=== PATIENT | female | born 1930 | race African-American/Black ===

== ENCOUNTER 2017-02-12 10:40 | Inpatient (IN) | payer MEDICARE, OTHER ==
[~2017-02-12] VITALS: Ht 162.6 cm; Wt 90.7 kg
[~2017-02-12 10:40] MED LIST: AMITIZA24 MCG ORAL; ASPIRIN81 M1 ORAL; CARVEDILOL25 MG ORAL; COLACE1 EAC1 RC; CRESTOR10 M1 PO; DEXILANT60 MG ORAL; FUROSEMIDE40 MG ORAL; HYDROCHLOROTHIA25 MG ORAL; IBUPROFEN200 M1 PO; MIRALAX17 G2 PO; MONTELUKAST SOD10 MG ORAL; NKM; NORCO 7.5-3251 EACH PO; NORVASC2.5 MG ORAL; PANTOPRAZOLE SO40 MG ORAL; POTASSIUM CHLO10 MEQ ORAL; PREVACID30 MG PO; SPIRONOLACTONE100 MG PO; SUCRALFATE; SUCRALFATE1 GM ORAL
[2017-02-12] MEDS ORDERED: DiphenhydrAMINE 50mg/ml Inj IVP ONE (11:30)
[2017-02-12] MEDS ORDERED: Tetanus/Diptheria/Pertussis Vaccine 0.5ml Syr IM ONE (11:30)
[2017-02-12] MEDS ORDERED: Bacitracin Oint UD TOPIC ONE (11:30)
--- NOTE | 2017-02-12 12:15 | Diagnostic Imaging Report ---
Indication: Chest pain Comparison: 09/18/13 A single view chest radiograph was obtained. Findings: No definite infiltrate or pulmonary vascular congestion identified. The heart is enlarged. The aorta is mildly enlarged consistent with atherosclerotic vascular disease. The bones are osteopenic. Impression: No acute disease
[2017-02-12] MEDS ORDERED: CRESTOR20 MG ORAL (12:20)
[2017-02-12] MEDS ORDERED: AMLODIPINE BESY10 MG ORAL (12:20)
[2017-02-12] MEDS ORDERED: CARVEDILOL25 MG ORAL (12:20)
[2017-02-12] MEDS ORDERED: JANUVIA25 MG ORAL (12:20)
[2017-02-12 12:33] LABS: TROPONIN I < 0.30 ng/mL (<=0.30)
[2017-02-12 12:36] LABS: ALANINE AMINOTRANSFERASE 13 U/L (3-33); ALBUMIN/GLOBULIN RATIO 0.6 (1.0-2.7); ANION GAP 15 (5-15); ASPARTATE AMINO TRANSFERASE 29 U/L (5-40); CALCIUM 9.2 mg/dL (8.6-10.2); CARBON DIOXIDE 26 mEQ/L (20-30); CHLORIDE 102 mEQ/L (98-107); HEMOLYSIS 176; LIPASE 33 U/L (< 60); POTASSIUM 4.7 mEQ/L (3.4-4.9); SODIUM 143 mEQ/L (135-145); TOTAL PROTEIN 7.3 g/dL (6.6-8.7)
[2017-02-12 12:42] LABS: REFLEX LACTIC ACID YES OR NO YES
[2017-02-12 12:46] LABS: CKMB < 1.5 ng/mL (< 3.8)
[2017-02-12 12:50] LABS: BASOPHILS % (AUTO) 2.3 % (0.0-2.0); EOSINOPHILS % (AUTO) 11.1 % (0.0-3.0); LYMPHOCYTES % (AUTO) 15.6 % (20.0-45.0); MEAN CORPUSCULAR HEMOGLOBIN 25.3 PG (27.0-31.0); MEAN CORPUSCULAR VOLUME 84 FL (80-99); MEAN PLATELET VOLUME 6.8 FL (6.5-10.1); NEUTROPHILS % (AUTO) 60.1 % (45.0-75.0); PLATELET COUNT 268 K/UL (150-450); RED BLOOD COUNT 4.87 M/UL (4.20-5.40); RED CELL DISTRIBUTION WIDTH 14.9 % (11.6-14.8)
[2017-02-12 13:00] VITALS: BP 96/64
--- NOTE | 2017-02-12 13:02 | Emergency Room Report ---
History of Present Illness General Chief Complaint: Skin Rash/Abscess Source: Patient Present Illness HPI Patient presents with a month of rash. It's all over her body. It's worse in the creases of her skin. His itching and also skin breakdown. She also has a foul discharge from her genital region. She states is not painful but is itching. She's not sure when her last tetanus shot was. Denies pain. She was unable to get a ride to her doctors until today. A visiting nurse comes once a week and advised her last week to go to the hospital because the rash was getting severe. She states a pharmacist told her she has psoriasis. Allergies: Coded Allergies: AZITHROMYCIN (Unverified Allergy, Severe, 05/13/13) Uncoded Allergies: unknown antibiotic (Allergy, Mild, 04/12/15) pt unsure of name of antibiotic, but states she has an allergy to "something" UNKNOWN ANTIBIOTIC (Allergy, Unknown, 05/27/12) Patient History Past Medical History: see triage record Social History Narrative at home with visiting RN once a week Reviewed Nursing Documentation: PMH: Agreed, PSxH: Agreed Nursing Documentation-PMH Hx Cardiac Problems: Yes - chf Hx Hypertension: Yes Hx COPD: Yes Hx Diabetes: No Hx Cancer: No Hx Gastrointestinal Problems: Yes Hx Seizures: Yes - X1 LONG TIME AGO Hx Cerebral Palsy: Yes Hx Dizziness: Yes Hx Headaches: Yes Review of Systems All Other Systems: negative except mentioned in HPI Physical Exam Vital Signs Date Time Temp Pulse Resp B/P Pulse Ox O2 Delivery O2 Flow Rate FiO2 02/12/17 10:58 97.5 108 24 96/64 97 Room Air Sp02 EP Interpretation: reviewed, normal General Appearance: no apparent distress, GCS 15, Chronically Ill Head: normocephalic, atraumatic Eyes: bilateral eye PERRL, bilateral eye normal inspection ENT: moist mucus membranes Neck: supple, no meningismus Respiratory: lungs clear, normal breath sounds Cardiovascular #1: regular rate, rhythm Cardiovascular #2: 2+ radial (R) Gastrointestinal: normal inspection, normal bowel sounds, non tender, no mass, non-distended, overweight Genitourinary: other - intertrigo Musculoskeletal: back normal, gait/station normal, normal range of motion Neurologic: alert, oriented x3, grossly normal - diffuse weakness Psychiatric: mood/affect normal Skin: other - diffuse rash all over body with areas of increased erythema and skin breakdown Medical Decision Making Diagnostic Impression: Primary Impression: Sepsis Qualified Codes: A41.9 - Sepsis, unspecified organism Additional Impressions: Cellulitis Qualified Codes: L03.90 - Cellulitis, unspecified Intertrigo ER Course The patient presents with itchy rash of her skin which is worsening in 2 weeks. Physical exam is remarkable for an extensive cellulitis with intertrigo - other considerations are scalded skin syndrome, allergic reaction. Patient evaluated for possible sepsis. Antibiotics are indicated and the patient is admitted to the hospital. Labs remarkable for normal WBC with eosinophilia, elevated lactic acid. EKG and CXR as below. Antibiotics begun. Consider antifungal agents. Improved with treatment. Discussed with Dr. Caban who declines admission. Presented to on-call physician who accepts patient. Admit med. Laboratory Tests Test 02/12/17 12:00 02/12/17 13:25 White Blood Count 6.0 K/UL (4.8-10.8) Red Blood Count 4.87 M/UL (4.20-5.40) Hemoglobin 12.3 G/DL (12.0-16.0) Hematocrit 41.1 % (37.0-47.0) Mean Corpuscular Volume 84 FL (80-99) Mean Corpuscular Hemoglobin 25.3 PG (27.0-31.0) L Mean Corpuscular Hemoglobin Concent 30.0 G/DL (32.0-36.0) L Red Cell Distribution Width 14.9 % (11.6-14.8) H Platelet Count 268 K/UL (150-450) Mean Platelet Volume 6.8 FL (6.5-10.1) Neutrophils (%) (Auto) 60.1 % (45.0-75.0) Lymphocytes (%) (Auto) 15.6 % (20.0-45.0) L Monocytes (%) (Auto) 11.0 % (1.0-10.0) H Eosinophils (%) (Auto) 11.1 % (0.0-3.0) H Basophils (%) (Auto) 2.3 % (0.0-2.0) H Sodium Level 143 mEQ/L (135-145) Potassium Level 4.7 mEQ/L (3.4-4.9) Chloride Level 102 mEQ/L (98-107) Carbon Dioxide Level 26 mEQ/L (20-30) Anion Gap 15 (5-15) Blood Urea Nitrogen 12 mg/dL (7-23) Creatinine 1.0 mg/dL (0.5-0.9) H Estimate Glomerular Filtration Rate mL/min (>60) Glucose Level 107 mg/dL (74-106) H Lactic Acid Level 2.90 mmol/L (0.66-2.22) H 1.90 mmol/L (0.66-2.22) Calcium Level 9.2 mg/dL (8.6-10.2) Total Bilirubin < 0.2 mg/dL (0.0-1.2) Aspartate Amino Transferase (AST) 29 U/L (5-40) Alanine Aminotransferase (ALT) 13 U/L (3-33) Alkaline Phosphatase 82 U/L (35-104) Total Creatine Kinase 66 U/L (26-140) Creatine Kinase MB < 1.5 ng/mL (< 3.8) Creatine Kinase MB Relative Index Troponin I < 0.30 ng/mL (<=0.30) Pro-B-Type Natriuretic Peptide 353 pg/mL (0-450) Total Protein 7.3 g/dL (6.6-8.7) Albumin 3.0 g/dL (3.5-5.2) L Globulin 4.3 g/dL Albumin/Globulin Ratio 0.6 (1.0-2.7) L Lipase 33 U/L (< 60) Prothrombin Time 9.7 SEC (9.30-11.50) Prothrombin Time INR 0.9 (0.9-1.1) PTT 26 SEC (23-33) EKG Diagnostic Results Rate: normal Rhythm: NSR ST Segments: no acute changes Rhythm Strip Diag. Results EP Interpretation: yes Rhythm: NSR, no PVC's, no ectopy Chest X-Ray Diagnostic Results Chest X-Ray Diagnostic Results : Chest X-Ray Ordered: Yes # of Views/Limited/Complete: 1 View Indication: Other EP Interpretation: Yes Interpretation: no consolidation, no effusion, no pneumothorax, no acute cardiopulmonary disease Impression: No acute disease Interpreting ER Provider: Electronically signed by Raymond Mendes MD Last Vital Signs Date Time Temp Pulse Resp B/P Pulse Ox O2 Delivery O2 Flow Rate FiO2 02/12/17 20:01 95 112/52 02/12/17 20:00 97.6 18 96 Room Air Status: improved Disposition: ADMITTED INPATIENT Condition: Serious Referrals: NON PHYSICIAN (PCP) Raymond Mendes M.D. Feb 12, 2017 13:02
[2017-02-12] MEDS ORDERED: Vancomycin 1.5gm/D5W 250ml 250 ML IVPB ONE (13:30)
[2017-02-12 13:44] LABS: INR 0.9 (0.9-1.1); PROTHROMBIN TIME 9.7 SEC (9.30-11.50)
[2017-02-12] MEDS ORDERED: LORazepam Inj 2mg/ml 1ml IV PRN (13:45)
[2017-02-12] MEDS ORDERED: Ketorolac 30mg Inj IV PRN (13:45)
[2017-02-12] MEDS ORDERED: Nitroglycerin Subl 0.4mg tab (Bottle Of 25) SL PRN (13:45)
[2017-02-12] MEDS ORDERED: Piperacillin/Tazobactam 2.25 GM in D5W 55 ML IV SCH (14:00)
[2017-02-12 15:30] VITALS: BP 127/64
[2017-02-12 16:42] VITALS: BP 118/69
[2017-02-12] MEDS: DiphenhydrAMINE 50mg/ml Inj IVP PRN (17:14)
[2017-02-12] MEDS: Zosyn 3.375gm q8h **Extended infusion IVPB SCH ×2 (17:39)
[2017-02-12] MEDS ORDERED: Solu-MEDROL 125mg Inj IV SCH (18:00)
--- NOTE | 2017-02-12 18:45 | Infectious Diseases Prog Note ---
Assessment/Plan Problems: (1) Intertrigo Assessment & Plan: will start fluconazol iv, recommend local wound care, and topical antifungals , avoid steroids (2) Cellulitis Assessment & Plan: started on zosyn and vancomycin , will send wound culture and blood culture (3) Sepsis Assessment & Plan: continue wide spectrum antibiotics , send blood culture (4) Chronic obstructive lung disease Assessment & Plan: with no exacerbation, avoid steroids, continue anhalers with neb therapy Subjective Allergies: Coded Allergies: AZITHROMYCIN (Unverified Allergy, Severe, 05/13/13) Uncoded Allergies: unknown antibiotic (Allergy, Mild, 04/12/15) pt unsure of name of antibiotic, but states she has an allergy to "something" UNKNOWN ANTIBIOTIC (Allergy, Unknown, 05/27/12) Objective Vital Signs Last 24 Hour Vital Signs Date Time Temp Pulse Resp B/P Pulse Ox O2 Delivery O2 Flow Rate FiO2 02/12/17 16:42 97.0 96 15 118/69 97 Room Air 02/12/17 15:30 97.8 16 127/64 98 Room Air 02/12/17 15:12 18 134/61 99 Room Air 02/12/17 13:00 97.5 24 96/64 97 Room Air 02/12/17 10:58 97.5 108 24 96/64 97 Room Air Height (Feet): 5 Height (Inches): 4.00 Weight (Pounds): 200 Laboratory Tests Test 02/12/17 12:00 02/12/17 13:25 White Blood Count 6.0 K/UL (4.8-10.8) Red Blood Count 4.87 M/UL (4.20-5.40) Hemoglobin 12.3 G/DL (12.0-16.0) Hematocrit 41.1 % (37.0-47.0) Mean Corpuscular Volume 84 FL (80-99) Mean Corpuscular Hemoglobin 25.3 PG (27.0-31.0) L Mean Corpuscular Hemoglobin Concent 30.0 G/DL (32.0-36.0) L Red Cell Distribution Width 14.9 % (11.6-14.8) H Platelet Count 268 K/UL (150-450) Mean Platelet Volume 6.8 FL (6.5-10.1) Neutrophils (%) (Auto) 60.1 % (45.0-75.0) Lymphocytes (%) (Auto) 15.6 % (20.0-45.0) L Monocytes (%) (Auto) 11.0 % (1.0-10.0) H Eosinophils (%) (Auto) 11.1 % (0.0-3.0) H Basophils (%) (Auto) 2.3 % (0.0-2.0) H Sodium Level 143 mEQ/L (135-145) Potassium Level 4.7 mEQ/L (3.4-4.9) Chloride Level 102 mEQ/L (98-107) Carbon Dioxide Level 26 mEQ/L (20-30) Anion Gap 15 (5-15) Blood Urea Nitrogen 12 mg/dL (7-23) Creatinine 1.0 mg/dL (0.5-0.9) H Estimat Glomerular Filtration Rate mL/min (>60) Glucose Level 107 mg/dL (74-106) H Lactic Acid Level 2.90 mmol/L (0.66-2.22) H 1.90 mmol/L (0.66-2.22) Calcium Level 9.2 mg/dL (8.6-10.2) Total Bilirubin < 0.2 mg/dL (0.0-1.2) Aspartate Amino Transf (AST/SGOT) 29 U/L (5-40) Alanine Aminotransferase (ALT/SGPT) 13 U/L (3-33) Alkaline Phosphatase 82 U/L (35-104) Total Creatine Kinase 66 U/L (26-140) Creatine Kinase MB < 1.5 ng/mL (< 3.8) Creatine Kinase MB Relative Index Troponin I < 0.30 ng/mL (<=0.30) Pro-B-Type Natriuretic Peptide 353 pg/mL (0-450) Total Protein 7.3 g/dL (6.6-8.7) Albumin 3.0 g/dL (3.5-5.2) L Globulin 4.3 g/dL Albumin/Globulin Ratio 0.6 (1.0-2.7) L Lipase 33 U/L (< 60) Prothrombin Time 9.7 SEC (9.30-11.50) Prothromb Time International Ratio 0.9 (0.9-1.1) Activated Partial Thromboplast Time 26 SEC (23-33) Current Medications Medications (Trade) Dose Ordered Sig/Atul Route PRN Reason Start Time Stop Time Status Last Admin Dose Admin Albuterol/ Ipratropium (DuoNeb 0.5-3(2.5)mg/3ml) 3 ml Q4H PRN HHN dyspnea 02/12/17 13:45 02/17/17 13:44 Amlodipine Besylate (Norvasc) 2.5 mg DAILY ORAL 02/13/17 09:00 03/15/17 08:59 Carvedilol (Coreg) 25 mg Q12HR ORAL 02/12/17 21:00 03/14/17 20:59 Dextrose STAT PRN IV Hypoglycemia 02/12/17 13:45 03/14/17 13:44 Diphenhydramine HCl (Benadryl) 25 mg Q6H PRN IVP Itching 02/12/17 17:00 03/14/17 16:59 02/12/17 17:14 Heparin Sodium (Porcine) (Heparin 5000 units/ml) 5,000 units EVERY 12 HOURS SUBQ 02/12/17 21:00 03/14/17 20:59 Ketorolac Tromethamine (Toradol 30mg) 30 mg Q8H PRN IV moderate pain 4-6 02/12/17 13:45 02/17/17 13:44 Lorazepam (Ativan 2mg/ml 1ml) 0.5 mg Q4H PRN IV For Anxiety 02/12/17 13:45 02/19/17 13:44 Methylprednisolone Sodium Succinate (Solu-MEDROL) 60 mg EVERY 6 HOURS IV 02/12/17 18:00 03/14/17 17:59 02/12/17 17:32 Montelukast Sodium (Singulair) 10 mg QPM ORAL 02/12/17 16:30 03/14/17 16:29 Morphine Sulfate (Morphine Sulfate) 2 mg Q4H PRN IVP severe pain 7-10 02/12/17 13:45 02/19/17 13:44 Nitroglycerin (Ntg) 0.4 mg Q5M X 3 DOSES PRN SL Prn Chest Pain 02/12/17 13:45 03/14/17 13:44 Ondansetron HCl (Zofran) 4 mg Q6H PRN IVP Nausea & Vomiting 02/12/17 13:45 03/14/17 13:44 Piperacillin Sod/ Tazobactam Sod/ Dextrose (Zosyn/D5W) 110 ml @ 27.5 mls/hr Q8HR@0000,0800,1600 IVPB 02/12/17 16:00 02/19/17 15:59 02/12/17 17:39 Promethazine HCl/ Codeine (Phenergan with Codeine) 5 ml Q6H PRN ORAL cough 02/12/17 13:45 03/14/17 13:44 Temazepam (Restoril) 15 mg HSPRN PRN ORAL Insomnia 02/12/17 13:45 02/19/17 13:44 Theophylline (Shar-Dur) 100 mg EVERY 12 HOURS ORAL 02/12/17 21:00 03/14/17 20:59 Gordon Miller M.D. Feb 12, 2017 18:45
[2017-02-12] MEDS: Montelukast 10mg tablet ORAL SCH (19:41)
[2017-02-12 20:00] VITALS: BP 112/52
[2017-02-12] MEDS: Theophylline ER 100mg ORAL SCH (20:00)
[2017-02-12] MEDS: Carvedilol 25mg Tab ORAL SCH (20:01)
[2017-02-12] MEDS: Heparin 5000 units/ml inj SUBQ SCH (20:03)
--- NOTE | 2017-02-12 23:15 | Consultation ---
DATE OF CONSULTATION: 02/12/2017 INFECTIOUS DISEASE CONSULTATION REQUESTING PHYSICIAN: Crissy Duke M.D. REASON FOR CONSULTATION: Cellulitis, intertrigo and sepsis. Recommendation for antibiotic therapy. HISTORY OF PRESENT ILLNESS: The patient is an 86-year-old female, morbidly obese, was brought into the hospital by her son for worsening skin cellulitis and infection. The patient has been itching her skin and her infection has been getting worse over the last two weeks with some breakdown. It has a foul discharge also from the genital region and area, became painful. As per the son, the patient was unable to seek medical attention, so she was brought into the emergency room at [facility] for evaluation and I was asked by the primary provider for antibiotic treatment and further management. PAST MEDICAL HISTORY: Significant for morbid obesity, coronary artery disease, CHF, hypertension, COPD, seizure, cerebral palsy and headache. PAST SURGICAL HISTORY: Negative. MEDICATIONS: The patient was started on vancomycin and Zosyn with high-dose steroid by the admitting physician. For rest of her medications, please refer to MAR. ALLERGIES: She is allergic to azithromycin. SOCIAL HISTORY: The patient lives at home with son. She is a visiting registered nurse every week. No recent drugs, tobacco or alcohol. FAMILY HISTORY: Unable to obtain. REVIEW OF SYSTEMS: A 12-point system review was all negative apart from the one I mentioned above in my History and Physical. PHYSICAL EXAMINATION: GENERAL: The patient is a morbidly obese female, lying in bed, alert, comfortable, not in distress. VITAL SIGNS: Temperature 97.5 degrees, pulse 74, blood pressure 96/64 and pulse oximetry 97% on room air. HEENT: Normocephalic and atraumatic. Pupils are reactive to light. Moist oral mucosa. No exudate. NECK: Supple. No lymphadenopathy. CARDIOVASCULAR: Regular rate and rhythm. No murmur or gallop. LUNGS: She has diminished breathing sound at the bases. Normal breathing effort. No wheezing. No rales. ABDOMEN: Soft, morbidly obese, nontender, and nondistended. Positive bowel sounds. EXTREMITIES: She has edema +1. Multiple skin cellulitis areas, mainly at the folds in the groin and close by genital area with foul smell. LABORATORY AND DIAGNOSTIC DATA: Labs showed white count of 6,000, hemoglobin of 4.3 and platelet count of 268,000. BUN of 12 and creatinine of 1. Imaging, chest x-ray showed no acute process. ASSESSMENT AND RECOMMENDATION: 1. Intertrigo The patient will be started on fluconazole IV. Recommend local wound care with topical antifungals and off-loading. Keep the skin dry and clean and ventilated. 2. Skin cellulitis. We will send wound culture. Continue vancomycin and Zosyn empiric treatments, pending culture results. 3. Sepsis. We will obtain blood culture. Continue vancomycin and Zosyn for now, empiric treatment. 4. Chronic obstructive pulmonary disease with no exacerbation. Continue inhalers. Avoid steroid if the patient had multiple infection and possible sepsis. Gordon Miller M.D. DR: NONA JOB#: [id number] CC:
[2017-02-13] VITALS: BP 127/74
[2017-02-13] MEDS: Zosyn 3.375gm q8h **Extended infusion IVPB SCH ×4 (01:27→08:22)
[2017-02-13 04:00] VITALS: BP 125/69
[2017-02-13] MEDS: Theophylline ER 100mg ORAL SCH ×2 (08:26→08:33)
[2017-02-13] MEDS: Carvedilol 25mg Tab ORAL SCH ×2 (08:33→22:09)
[2017-02-13] MEDS: Heparin 5000 units/ml inj SUBQ SCH ×2 (08:40→22:15)
[2017-02-13] MEDS: DiphenhydrAMINE 50mg/ml Inj IVP PRN ×3 (08:53→22:52)
[2017-02-13] MEDS: Morphine Sulfate 2mg/ml Inj IVP PRN ×3 (08:56→22:52)
[2017-02-13 09:00] VITALS: BP 140/78
--- NOTE | 2017-02-13 13:30 | Infectious Diseases Prog Note ---
Assessment/Plan Problems: (1) Intertrigo Assessment & Plan: on fluconazol iv, recommend local wound care, and topical antifungals , avoid steroids (2) Cellulitis Assessment & Plan: started on zosyn and vancomycin , will send wound culture and blood culture (3) Sepsis Assessment & Plan: continue wide spectrum antibiotics , send blood culture (4) Chronic obstructive lung disease Assessment & Plan: with no exacerbation, avoid steroids, continue anhalers with neb therapy Subjective ROS Limited/Unobtainable: Yes Allergies: Coded Allergies: AZITHROMYCIN (Unverified Allergy, Severe, 05/13/13) Uncoded Allergies: unknown antibiotic (Allergy, Mild, 04/12/15) pt unsure of name of antibiotic, but states she has an allergy to "something" UNKNOWN ANTIBIOTIC (Allergy, Unknown, 05/27/12) Subjective she was up in bed comfortable, not in distress, afebrile Objective Vital Signs Last 24 Hour Vital Signs Date Time Temp Pulse Resp B/P Pulse Ox O2 Delivery O2 Flow Rate FiO2 02/13/17 09:49 87 Room Air 02/13/17 09:00 96.8 86 18 140/78 96 Room Air 02/13/17 08:41 81 125/69 02/13/17 08:33 81 125/69 02/13/17 04:00 97.2 81 19 125/69 96 Room Air 02/13/17 00:00 97.0 81 19 127/74 97 Room Air 02/12/17 20:01 95 112/52 02/12/17 20:00 97.6 95 18 112/52 96 Room Air 02/12/17 16:42 97.0 96 15 118/69 97 Room Air 02/12/17 15:30 97.8 16 127/64 98 Room Air 02/12/17 15:12 18 134/61 99 Room Air Height (Feet): 5 Height (Inches): 4.00 Weight (Pounds): 200 General Appearance: WD/WN, no acute distress HEENT: normocephalic, anicteric, mucous membranes moist, PERRL Respiratory/Chest: chest wall non-tender, lungs clear, normal breath sounds, no respiratory distress, no accessory muscle use Cardiovascular: normal peripheral pulses, normal rate, regular rhythm, no gallop/murmur Abdomen: normal bowel sounds, soft, non tender, no organomegaly, non distended , no mass, no scars Genitourinary: other - intertrego Extremities: no cyanosis, no clubbing Skin: rash, lesions, other - intertrego Microbiology Date/Time Source Procedure Growth Status 02/12/17 20:30 Thigh Right Gram Stain - Final Resulted 02/12/17 20:30 Thigh Right Wound Culture Pending Resulted Current Medications Medications (Trade) Dose Ordered Sig/Atul Route PRN Reason Start Time Stop Time Status Last Admin Dose Admin Albuterol/ Ipratropium (DuoNeb 0.5-3(2.5)mg/3ml) 3 ml Q4H PRN HHN dyspnea 02/12/17 13:45 02/17/17 13:44 Amlodipine Besylate (Norvasc) 2.5 mg DAILY ORAL 02/13/17 09:00 03/15/17 08:59 02/13/17 08:41 Carvedilol (Coreg) 25 mg Q12HR ORAL 02/12/17 21:00 03/14/17 20:59 02/13/17 08:33 Dextrose STAT PRN IV Hypoglycemia 02/12/17 13:45 03/14/17 13:44 Diphenhydramine HCl 25 mg 25 mg Q6H PRN IVP Itching 02/12/17 17:00 03/14/17 16:59 02/13/17 08:53 Fluconazole/ Sodium Chloride (Diflucan 200mg/ 100ml Premix) 100 ml @ 100 mls/hr Q24H IV 02/12/17 20:00 02/19/17 19:59 02/12/17 20:02 Heparin Sodium (Porcine) (Heparin 5000 units/ml) 5,000 units EVERY 12 HOURS SUBQ 02/12/17 21:00 03/14/17 20:59 02/13/17 08:40 Ketorolac Tromethamine (Toradol 30mg) 30 mg Q8H PRN IV moderate pain 4-6 02/12/17 13:45 02/17/17 13:44 Lorazepam (Ativan 2mg/ml 1ml) 0.5 mg Q4H PRN IV For Anxiety 02/12/17 13:45 02/19/17 13:44 Montelukast Sodium (Singulair) 10 mg QPM ORAL 02/12/17 16:30 03/14/17 16:29 7/11/17 19:41 Morphine Sulfate (Morphine Sulfate) 2 mg Q4H PRN IVP severe pain 702/12/17 13:45 02/19/17 13:44 02/13/17 08:56 Nitroglycerin (Ntg) 0.4 mg Q5M X 3 DOSES PRN SL Prn Chest Pain 02/12/17 13:45 03/14/17 13:44 Ondansetron HCl (Zofran) 4 mg Q6H PRN IVP Nausea & Vomiting 02/12/17 13:45 03/14/17 13:44 Piperacillin Sod/ Tazobactam Sod/ Dextrose (Zosyn/D5W) 110 ml @ 27.5 mls/hr Q8HR@0000,0800,1600 IVPB 02/12/17 16:00 02/19/17 15:59 02/13/17 08:22 Promethazine HCl/ Codeine (Phenergan with Codeine) 5 ml Q6H PRN ORAL cough 02/12/17 13:45 03/14/17 13:44 Temazepam (Restoril) 15 mg HSPRN PRN ORAL Insomnia 02/12/17 13:45 02/19/17 13:44 Theophylline (Shar-Dur) 100 mg EVERY 12 HOURS ORAL 02/12/17 21:00 03/14/17 20:59 02/13/17 08:33 Gordon Miller M.D. Feb 13, 2017 13:30
--- NOTE | 2017-02-13 15:54 | History and Physical ---
History of Present Illness General Date patient seen: Feb 13, 2017 Reason for Hospitalization: Skin Rash/Abscess Present Illness HPI 86 year old female with hx of COPD/asthma, HTN, DM, presented to ER with CC of intractable itching and generalized rash, mostly on her back and extremities. No reported episode of fever, chills. Allergies: Coded Allergies: AZITHROMYCIN (Unverified Allergy, Severe, 05/13/13) Uncoded Allergies: unknown antibiotic (Allergy, Mild, 04/12/15) pt unsure of name of antibiotic, but states she has an allergy to "something" UNKNOWN ANTIBIOTIC (Allergy, Unknown, 05/27/12) Medication History Scheduled Amlodipine Besylate (Norvasc), 2.5 MG ORAL DAILY, (Reported) Amlodipine Besylate* (Amlodipine Besylate*), 10 MG ORAL DAILY, (Reported) Aspirin (Aspirin), 81 MG ORAL DAILY, (Reported) Carvedilol* (Carvedilol*), 25 MG ORAL DAILY, (Reported) Carvedilol* (Carvedilol*), 25 MG ORAL BID, (Reported) Dexlansoprazole (Dexilant), 60 MG ORAL DAILY, (Reported) Furosemide* (Lasix*), 40 MG ORAL DAILY, (Reported) Hydrochlorothiazide* (Hydrochlorothiazide*), 25 MG ORAL DAILY, (Reported) Hydrocodone Bit/Acetaminophen 7.5-325* ([place] 7.5-325*), 1 TAB PO Q4H, (Reported ) Ibuprofen (Ibuprofen), 0 PO DAILY, (Reported) Lubiprostone (Amitiza*), 24 MCG ORAL EVERY 12 HOURS, (Reported) Montelukast Sodium* (Montelukast Sodium*), 10 MG ORAL DAILY, (Reported) No Known Medications* (NKM - No Known Medications*), 0 ., (Reported) Pantoprazole* (Pantoprazole*), 40 MG ORAL DAILY, (Reported) Rosuvastatin Calcium (Crestor), 0 PO DAILY, (Reported) Rosuvastatin Calcium* (Crestor*), 20 MG ORAL DAILY, (Reported) Sitagliptin* (Januvia*), 100 MG ORAL DAILY, (Reported) Spironolactone* (Spironolactone*), 0 PO DAILY, (Reported) Sucralfate* (Carafate*), 1 GM ORAL THREE TIMES A DAY, (Reported) Scheduled PRN Polyethylene Glycol 3350* (Miralax*), 17 GM PO DAILY PRN, (Reported) Miscellaneous Medications Potassium Chloride* (K-Dur*), MEQ ORAL, (Reported) Patient History Healthcare decision maker Kianna Curiel Resuscitation status Full Code Advanced Directive on File No Past Medical/Surgical History Past Medical/Surgical History: (1) HTN (hypertension) (2) Diabetes mellitus (3) Chronic obstructive lung disease Review of Systems All Other Systems: negative except mentioned in HPI Physical Exam General Appearance: WD/WN, no apparent distress Lines, tubes and drains: peripheral HEENT: normocephalic, atraumatic Neck: non-tender, supple Breasts: no masses Cardiovascular/Chest: normal peripheral pulses, normal rate Abdomen: normal bowel sounds, non tender Genitourinary/Rectal: normal genital exam, normal rectal exam Extremities: normal range of motion Neurologic: pediatric dietician II-XII grossly normal Last 24 Hour Vital Signs Date Time Temp Pulse Resp B/P Pulse Ox O2 Delivery O2 Flow Rate FiO2 02/13/17 09:49 87 Room Air 02/13/17 09:00 96.8 86 18 140/78 96 Room Air 02/13/17 08:41 81 125/69 02/13/17 08:33 81 125/69 02/13/17 04:00 97.2 81 19 125/69 96 Room Air 02/13/17 00:00 97.0 81 19 127/74 97 Room Air 02/12/17 20:01 95 112/52 02/12/17 20:00 97.6 95 18 112/52 96 Room Air 02/12/17 16:42 97.0 96 15 118/69 97 Room Air Intake and Output 02/12/17 02/13/17 19:00 07:00 Intake Total 400 ml 210.0 ml Output Total 140 ml 300 ml Balance 260 ml -90.0 ml Intake Oral 400 ml IV Total 210.0 ml Output Urine Total 140 ml 300 ml Microbiology Date/Time Source Procedure Growth Status 02/12/17 20:30 Thigh Right Gram Stain - Final Resulted 02/12/17 20:30 Thigh Right Wound Culture Pending Resulted Height (Feet): 5 Height (Inches): 4.00 Weight (Pounds): 200 Medications Current Medications Medications (Trade) Dose Ordered Sig/Atul Route PRN Reason Start Time Stop Time Status Last Admin Dose Admin Albuterol/ Ipratropium (DuoNeb 0.5-3(2.5)mg/3ml) 3 ml Q4H PRN HHN dyspnea 02/12/17 13:45 02/17/17 13:44 Amlodipine Besylate (Norvasc) 2.5 mg DAILY ORAL 02/13/17 09:00 03/15/17 08:59 02/13/17 08:41 Carvedilol (Coreg) 25 mg Q12HR ORAL 02/12/17 21:00 03/14/17 20:59 02/13/17 08:33 Dextrose STAT PRN IV Hypoglycemia 02/12/17 13:45 03/14/17 13:44 Diphenhydramine HCl (Benadryl) 50 mg Q6H PRN IVP Itching 02/13/17 14:30 03/15/17 14:29 02/13/17 14:44 Fluconazole/ Sodium Chloride (Diflucan 200mg/ 100ml Premix) 100 ml @ 100 mls/hr Q24H IV 02/12/17 20:00 02/19/17 19:59 02/12/17 20:02 Heparin Sodium (Porcine) (Heparin 5000 units/ml) 5,000 units EVERY 12 HOURS SUBQ 02/12/17 21:00 03/14/17 20:59 02/13/17 08:40 Ketorolac Tromethamine (Toradol 30mg) 30 mg Q8H PRN IV moderate pain 4-6 02/12/17 13:45 02/17/17 13:44 Lorazepam (Ativan 2mg/ml 1ml) 0.5 mg Q4H PRN IV For Anxiety 02/12/17 13:45 02/19/17 13:44 Montelukast Sodium (Singulair) 10 mg QPM ORAL 02/12/17 16:30 03/14/17 16:29 02/12/17 19:41 Morphine Sulfate (Morphine Sulfate) 2 mg Q4H PRN IVP severe pain 7-10 02/12/17 13:45 02/19/17 13:44 02/13/17 14:44 Nitroglycerin (Ntg) 0.4 mg Q5M X 3 DOSES PRN SL Prn Chest Pain 02/12/17 13:45 03/14/17 13:44 Ondansetron HCl (Zofran) 4 mg Q6H PRN IVP Nausea & Vomiting 02/12/17 13:45 03/14/17 13:44 Piperacillin Sod/ Tazobactam Sod 3.375 gm/Dextrose 110 ml @ 27.5 mls/hr Q8HR@0000,0800,1600 IVPB 02/12/17 16:00 02/19/17 15:59 02/13/17 08:22 Promethazine HCl/ Codeine (Phenergan with Codeine) 5 ml Q6H PRN ORAL cough 02/12/17 13:45 03/14/17 13:44 Temazepam (Restoril) 15 mg HSPRN PRN ORAL Insomnia 02/12/17 13:45 02/19/17 13:44 Theophylline (Shar-Dur) 100 mg EVERY 12 HOURS ORAL 02/12/17 21:00 03/14/17 20:59 02/13/17 08:33 Assessment/Plan Problem List: (1) Generalized dermatitis (2) HTN (hypertension) ICD Codes: I10 - Essential (primary) hypertension SNOMED: 58432868 (3) Diabetes mellitus ICD Codes: E11.9 - Type 2 diabetes mellitus without complications SNOMED: 74736072 (4) Chronic obstructive lung disease Assessment/Plan rule out scabies ID evaluation, Dr. Valencia called there is no Dermatology consult available at this hospital sliding scale, insulin coverage dvt prophylaxis JORDON ALBRECHT Feb 13, 2017 15:54
[2017-02-13 15:55] VITALS: BP 122/74
[2017-02-13] MEDS: Montelukast 10mg tablet ORAL SCH (16:21)
--- NOTE | 2017-02-13 16:59 | Cardiology Report ---
APPROVED REPORT EKG Measurement Heart [id number] Normal sinus rhythm Nonspecific T wave abnormality Abnormal ECG
[2017-02-13] MEDS: NovoLOG Insulin Flexpen SUBQ SCH ×2 (17:05→22:14)
[2017-02-13] MEDS: Triamcinolone 0.5% Cr 15gm TOPIC SCH (18:15)
[2017-02-13 19:19] LABS: APPEARANCE,URINE CLEAR; KETONES,URINE 1+ (NEGATIVE); LEUKOCYTE ESTERASE ,URINE 2+ (NEGATIVE); NITRITE,URINE NEGATIVE (NEGATIVE); PH,URINE 5 (4.5-8.0); PROTEIN,URINE 2+ (NEGATIVE); UROBILINOGEN,URINE NORMAL MG/DL (0.0-1.0)
[2017-02-13 19:26] LABS: AMORPHOUS SEDIMENT,UR FEW /LPF; BACTERIA,URINE FEW /HPF; SQUAMOUS EPITHELIAL CELL,UR FEW /LPF (NONE/OCC)
[2017-02-13 20:00] VITALS: BP 111/59
--- NOTE | 2017-02-13 21:40 | History and Physical Report ---
DATE OF ADMISSION: 02/12/2017 HISTORY OF PRESENT ILLNESS: The patient was admitted to me, I was on-call. This is an 86-year-old obese female, very nice and pleasant lady, who has come here for cellulitis/rash and itching and burning pruritus for the past month, it was getting worse and she was unable to tolerate it and bare it anymore and came to the hospital. The patient is admitted for rash/cellulitis. Denies fever or chills. Denies cough. Denies shortness of breath. Denies headache. Denies heartburn. Denies nausea, vomiting or diarrhea. Denies rectal bleeding. Denies orthopnea. Denies cough. PAST MEDICAL HISTORY: Significant for hypertension, GERD, obesity, degenerative joint disease, possible asthma, constipation, hyperlipidemia, and NIDDM. PAST SURGICAL HISTORY: Hysterectomy and ear surgery. MEDICATIONS: Norvasc, aspirin, Coreg, Dexilant, Lasix, hydrochlorothiazide, Amitiza, montelukast, Protonix, MiraLAX, potassium, Crestor, Januvia, spironolactone, and Carafate. ALLERGIES: Azithromycin. SOCIAL HISTORY: The patient has history of smoking. History of alcohol abuse. No history of drug abuse. FAMILY HISTORY: Does have history of history of diabetes and hypertension. REVIEW OF SYSTEMS: HEENT: Denies headaches. Respiratory: Denies shortness of breath. Denies cough. Cardiovascular: Denies chest pain. Gastrointestinal: Denies nausea, vomiting or diarrhea. Skin: Reports pruritus and rash all over the body for the past month that it is getting worse for the past couple of days. Extremities: Denies pain in the lower extremities. Central Nervous System: Denies change in vision or speech pattern. PHYSICAL EXAMINATION: VITAL SIGNS: Temperature is 97.3 degrees, pulse 81, and blood pressure 135/69. HEENT: PERRLA. NECK: Supple. No lymphadenopathy. CHEST: Clear to auscultation. GASTROINTESTINAL: Soft, nontender and nondistended. No organomegaly. EXTREMITIES: There is 2+ edema. NEUROLOGIC: Reflexes on both sides. The patient is morbidly obese. SKIN: She does have rash throughout the body and it looks like intertrigo, specially present more pronounced on the folds of the body. He is able to move all four extremities. LABORATORY AND DIAGNOSTIC DATA: WBC of 6, hemoglobin 12 and platelet 268,000. Sodium 143, potassium 4.3, BUN of 12, creatinine 1, and glucose 107. ASSESSMENT AND PLAN: 1. Rash. 2. Intertrigo. 3. Pruritus. 4. Morbidly obese. 5. Hypertension. 6. Diabetes. Dr. Miller is being consulted as well as Dr. Ramirez for the dehydration as well as for the cellulitis, . They have been consulted. Crissy Duke M.D. DR: RAPHAEL JOB#: [id number] CC:
[2017-02-14] VITALS: BP 115/61
--- NOTE | 2017-02-14 01:43 | Wound Care Consultation ---
Wound Assessment Wound Assessment #1: Wound Present on Admission: Yes New Wound: No Status Change of Wound: No Wound Location Body Site: other - generalized Wound Type: rash - and self inflicted scratch silva Rolando Test: Does not Rolando Percent of Wound [place]/Red: 100 Wound Drainage Description: [place] Wound Drainage Amount: Scant Wound Drainage Odor: None/Absent Tissue Surrounding Wound: Erythemic Wound General Appearance: Reddened Wound Assessment #2: Wound Number: #2 Wound Present on Admission: Yes New Wound: No Status Change of Wound: No Wound Location Body Site: perineal area - and abdominal fold Wound Type: chemical burn Rolando Test: Does not Rolando Percent of Wound [place]/Red: 100 Wound Drainage Description: [place] Wound Drainage Amount: Scant Wound Drainage Odor: None/Absent Tissue Surrounding Wound: Erythemic Wound General Appearance: Reddened Wound Comment #1 Generalized rashes and self inflicted scratch silva #2 Chemical burn on perineal area and abdominal fold Recommendation -Local treatment as ordered by MD -Keep clean and dry -Turn and reposition -Optimize nutrition -Offload both heels -Assess and f/u accordingly for any changes ESTEVAN DIEZ RN Feb 14, 2017 01:43
[2017-02-14 04:00] VITALS: BP 121/61
[2017-02-14 06:30] LABS: BASOPHILS % (AUTO) 1.2 % (0.0-2.0); EOSINOPHILS % (AUTO) 0.6 % (0.0-3.0); LYMPHOCYTES % (AUTO) 8.5 % (20.0-45.0); MEAN CORPUSCULAR HEMOGLOBIN 26.1 PG (27.0-31.0); MEAN CORPUSCULAR HGB CONC 30.9 G/DL (32.0-36.0); MEAN CORPUSCULAR VOLUME 84 FL (80-99); MEAN PLATELET VOLUME 7.1 FL (6.5-10.1); MONOCYTES % (AUTO) 7.7 % (1.0-10.0); PLATELET COUNT 266 K/UL (150-450); RED BLOOD COUNT 4.11 M/UL (4.20-5.40); RED CELL DISTRIBUTION WIDTH 15.4 % (11.6-14.8); WHITE BLOOD COUNT 11.4 K/UL (4.8-10.8)
[2017-02-14] MEDS: NovoLOG Insulin Flexpen SUBQ SCH ×4 (06:30→21:00)
[2017-02-14 07:13] LABS: ALANINE AMINOTRANSFERASE 8 U/L (3-33); ALBUMIN/GLOBULIN RATIO 0.8 (1.0-2.7); ANION GAP 8 (5-15); ASPARTATE AMINO TRANSFERASE 14 U/L (5-40); CALCIUM 8.7 mg/dL (8.6-10.2); CARBON DIOXIDE 27 mEQ/L (20-30); CHLORIDE 104 mEQ/L (98-107); CREATININE 0.9 mg/dL (0.5-0.9); CRP QUANT 0.6 mg/dL (< 0.5); HEMOLYSIS 2; MAGNESIUM 2.1 mg/dL (1.7-2.5); PHOSPHORUS 3.1 mg/dL (2.5-4.8); SODIUM 139 mEQ/L (135-145); TOTAL PROTEIN 6.7 g/dL (6.6-8.7)
[2017-02-14 07:46] LABS: ERYTHROCYTE SEDIMENTATION RATE 87 MM/HR (0-42)
[2017-02-14 08:24] VITALS: BP 133/76
[2017-02-14] MEDS: Nystatin Powder 100,000 units/gm 15gm TOPIC SCH ×3 (09:06→17:50)
[2017-02-14] MEDS: Heparin 5000 units/ml inj SUBQ SCH ×2 (09:09→21:24)
[2017-02-14] MEDS: Triamcinolone 0.5% Cr 15gm TOPIC SCH ×3 (09:10→17:51)
[2017-02-14] MEDS: Carvedilol 25mg Tab ORAL SCH ×2 (09:10→21:22)
[2017-02-14] MEDS: DiphenhydrAMINE 50mg/ml Inj IVP PRN ×2 (11:53→21:23)
[2017-02-14 12:31] VITALS: BP 108/67
--- NOTE | 2017-02-14 13:40 | Pulmonology Progress Note ---
Assessment/Plan Problems: (1) Generalized dermatitis (2) HTN (hypertension) (3) Diabetes mellitus (4) Chronic obstructive lung disease Assessment/Plan symptomatic treatment add benadryl trying to find a smooth plater f/u labs Subjective ROS Limited/Unobtainable: No Interval Events: still itching Allergies: Coded Allergies: AZITHROMYCIN (Unverified Allergy, Severe, 05/13/13) Uncoded Allergies: unknown antibiotic (Allergy, Mild, 04/12/15) pt unsure of name of antibiotic, but states she has an allergy to "something" UNKNOWN ANTIBIOTIC (Allergy, Unknown, 05/27/12) Objective Last 24 Hour Vital Signs Date Time Temp Pulse Resp B/P Pulse Ox O2 Delivery O2 Flow Rate FiO2 02/14/17 12:31 96.4 92 19 108/67 Room Air 02/14/17 09:10 68 133/76 02/14/17 09:07 68 133/76 02/14/17 08:24 97.9 68 18 133/76 100 Room Air 02/14/17 04:00 97.7 83 19 121/61 96 Room Air 02/14/17 00:00 97.9 83 19 115/61 97 Room Air 02/13/17 22:09 80 111/59 02/13/17 20:00 97.9 80 18 111/59 96 Room Air 02/13/17 19:19 88 20 Room Air 21 02/13/17 15:55 98.6 87 20 122/74 97 Room Air Intake and Output 02/13/17 02/14/17 19:00 07:00 Intake Total 960 ml 360 ml Output Total 600 ml 350 ml Balance 360 ml 10 ml Intake Oral 960 ml 360 ml Output Urine Total 600 ml 350 ml General Appearance: WD/WN HEENT: normocephalic, atraumatic Respiratory/Chest: chest wall non-tender, lungs clear Cardiovascular: normal peripheral pulses, normal rate Abdomen: normal bowel sounds, soft, non tender Extremities: no cyanosis, no clubbing Microbiology Date/Time Source Procedure Growth Status 02/12/17 12:00 Blood Blood Culture - Preliminary NO GROWTH AFTER 24 HOURS Resulted 02/12/17 12:00 Blood Blood Culture - Preliminary NO GROWTH AFTER 24 HOURS Resulted 02/12/17 20:30 Thigh Right Gram Stain - Final Resulted 02/12/17 20:30 Wound Culture - Preliminary Staphylococcus Aureus Resulted Laboratory Tests 02/13/17 18:30: Urine Color Pale yellow, Urine Appearance Clear, Urine pH 5, Urine Specific [place] 1.020, Urine Protein 2+H, Urine Glucose (UA) Negative, Urine Ketones 1+H , Urine Occult Blood 5+H, Urine Nitrite Negative, Urine Bilirubin Negative, Urine Urobilinogen Normal, Urine Leukocyte Esterase 2+H, Urine RBC 10-15H, Urine WBC 5-10H, Urine Squamous Epithelial Cells Few, Urine Amorphous Sediment FewH, Urine Bacteria Few 02/14/17 04:50: White Blood Count 11.4H, Red Blood Count 4.11L, Hemoglobin 10.7L, Hematocrit 34.7L, Mean Corpuscular Volume 84, Mean Corpuscular Hemoglobin 26.1L, Mean Corpuscular Hemoglobin Concent 30.9L, Red Cell Distribution Width 15.4H, Platelet Count 266, Mean Platelet Volume 7.1, Neutrophils (%) (Auto) 82.0H, Lymphocytes (%) (Auto) 8.5L, Monocytes (%) (Auto) 7.7, Eosinophils (%) (Auto) 0.6, Basophils (%) (Auto) 1.2, Erythrocyte Sedimentation Rate 87H, Sodium Level 139, Potassium Level 4.0, Chloride Level 104, Carbon Dioxide Level 27, Anion Gap 8, Blood Urea Nitrogen 12, Creatinine 0.9, Estimat Glomerular Filtration Rate , Glucose Level 107H, Calcium Level 8.7, Phosphorus Level 3.1, Magnesium Level 2.1, Total Bilirubin < 0.2, Aspartate Amino Transf (AST/SGOT) 14, Alanine Aminotransferase (ALT/SGPT) 8, Alkaline Phosphatase 81, C-Reactive Protein, Quantitative 0.6H, Total Protein 6.7, Albumin 3.0L, Globulin 3.7, Albumin/ Globulin Ratio 0.8L Current Medications Medications (Trade) Dose Ordered Sig/Atul Route PRN Reason Start Time Stop Time Status Last Admin Dose Admin Albuterol/ Ipratropium (DuoNeb 0.5-3(2.5)mg/3ml) 3 ml Q4H PRN HHN dyspnea 02/12/17 13:45 02/17/17 13:44 Amlodipine Besylate (Norvasc) 2.5 mg DAILY ORAL 02/13/17 09:00 03/15/17 08:59 02/14/17 09:07 Carvedilol (Coreg) 25 mg Q12HR ORAL 02/12/17 21:00 03/14/17 20:59 02/14/17 09:10 Dextrose STAT PRN IV Hypoglycemia 02/12/17 13:45 03/14/17 13:44 Diphenhydramine HCl (Benadryl Cream) 1 applic THREE TIMES A DAY PRN TOPIC Itching 02/14/17 13:45 03/16/17 13:44 UNV Diphenhydramine HCl (Benadryl) 25 mg Q6H PRN ORAL Itching 02/14/17 13:45 03/16/17 13:44 UNV Diphenhydramine HCl (Benadryl) 50 mg Q6H PRN IVP Itching 02/13/17 14:30 03/15/17 14:29 02/14/17 11:53 Fluconazole/ Sodium Chloride (Diflucan 200mg/ 100ml Premix) 100 ml @ 100 mls/hr Q24H IV 02/12/17 20:00 02/19/17 19:59 02/13/17 22:13 Heparin Sodium (Porcine) (Heparin 5000 units/ml) 5,000 units EVERY 12 HOURS SUBQ 02/12/17 21:00 03/14/17 20:59 02/14/17 09:09 Insulin Aspart (NovoLOG) BEFORE MEALS AND HS SUBQ 02/13/17 16:30 03/15/17 16:29 02/14/17 11:54 Lorazepam (Ativan 2mg/ml 1ml) 0.5 mg Q4H PRN IV For Anxiety 02/12/17 13:45 02/19/17 13:44 Montelukast Sodium (Singulair) 10 mg QPM ORAL 02/12/17 16:30 03/14/17 16:29 02/12/17 19:41 Morphine Sulfate (Morphine Sulfate) 2 mg Q4H PRN IVP severe pain 702/12/17 13:45 02/19/17 13:44 02/13/17 22:52 Nitroglycerin (Ntg) 0.4 mg Q5M X 3 DOSES PRN SL Prn Chest Pain 02/12/17 13:45 03/14/17 13:44 Nystatin (Nystop Powder) 1 applic THREE TIMES A DAY TOPIC 02/14/17 09:00 03/16/17 08:59 02/14/17 09:06 Ondansetron HCl (Zofran) 4 mg Q6H PRN IVP Nausea & Vomiting 02/12/17 13:45 03/14/17 13:44 Promethazine HCl/ Codeine (Phenergan with Codeine) 5 ml Q6H PRN ORAL cough 02/12/17 13:45 03/14/17 13:44 Temazepam (Restoril) 15 mg HSPRN PRN ORAL Insomnia 02/12/17 13:45 02/19/17 13:44 Triamcinolone Acetonide (Kenalog 0.5% Cr) 1 applic THREE TIMES A DAY TOPIC 02/13/17 18:00 03/15/17 17:59 02/14/17 09:10 JORDON ALBRECHT Feb 14, 2017 13:40
[2017-02-14 16:00] VITALS: BP 116/71
[2017-02-14] MEDS: Montelukast 10mg tablet ORAL SCH (17:48)
[2017-02-14] MEDS: Morphine Sulfate 2mg/ml Inj IVP PRN ×2 (17:48→22:15)
[2017-02-14] MEDS ORDERED: Tubing IV Secondary IV ONE (18:15)
[2017-02-14] MEDS ORDERED: NS 275ml ONE (18:15)
--- NOTE | 2017-02-14 18:53 | Consultation ---
Consult Note Consult Note ID # [id number] FERMIN BELLO M.D. Feb 14, 2017 18:53
[2017-02-14 20:00] VITALS: BP 109/67
[2017-02-14] MEDS ORDERED: Fluconazole 100mg tab ORAL SCH (21:00)
[2017-02-14] MEDS: Fluconazole 100mg tab ORAL SCH (21:23)
--- NOTE | 2017-02-14 21:46 | General Progress Note ---
Assessment/Plan Assessment/Plan cellulitis intertigo ho asthma no cad htn obesity abx per ID wound care avoid steroid pulmonary hygiene bp stable dvt and ulcer prophylaxis Subjective Allergies: Coded Allergies: AZITHROMYCIN (Unverified Allergy, Severe, 05/13/13) Uncoded Allergies: unknown antibiotic (Allergy, Mild, 04/12/15) pt unsure of name of antibiotic, but states she has an allergy to "something" UNKNOWN ANTIBIOTIC (Allergy, Unknown, 05/27/12) Subjective followed by me as out patient above noted has rash and cellulitis no sob no cp Objective Last 24 Hour Vital Signs Date Time Temp Pulse Resp B/P Pulse Ox O2 Delivery O2 Flow Rate FiO2 02/14/17 21:22 77 109/67 02/14/17 20:25 77 18 Room Air 21 02/14/17 20:00 96.8 82 20 109/67 94 Room Air 02/14/17 16:00 97.5 79 18 116/71 94 Room Air 02/14/17 12:31 96.4 92 19 108/67 Room Air 02/14/17 09:10 68 133/76 02/14/17 09:07 68 133/76 02/14/17 08:24 97.9 68 18 133/76 100 Room Air 02/14/17 04:00 97.7 83 19 121/61 96 Room Air 02/14/17 00:00 97.9 83 19 115/61 97 Room Air 02/13/17 22:09 80 111/59 Intake and Output 02/13/17 02/14/17 19:00 07:00 Intake Total 960 ml 360 ml Output Total 600 ml 350 ml Balance 360 ml 10 ml Intake Oral 960 ml 360 ml Output Urine Total 600 ml 350 ml Laboratory Tests 02/14/17 04:50: White Blood Count 11.4H, Red Blood Count 4.11L, Hemoglobin 10.7L, Hematocrit 34.7L, Mean Corpuscular Volume 84, Mean Corpuscular Hemoglobin 26.1L, Mean Corpuscular Hemoglobin Concent 30.9L, Red Cell Distribution Width 15.4H, Platelet Count 266, Mean Platelet Volume 7.1, Neutrophils (%) (Auto) 82.0H, Lymphocytes (%) (Auto) 8.5L, Monocytes (%) (Auto) 7.7, Eosinophils (%) (Auto) 0.6, Basophils (%) (Auto) 1.2, Erythrocyte Sedimentation Rate 87H, Sodium Level 139, Potassium Level 4.0, Chloride Level 104, Carbon Dioxide Level 27, Anion Gap 8, Blood Urea Nitrogen 12, Creatinine 0.9, Estimat Glomerular Filtration Rate , Glucose Level 107H, Calcium Level 8.7, Phosphorus Level 3.1, Magnesium Level 2.1, Total Bilirubin < 0.2, Aspartate Amino Transf (AST/SGOT) 14, Alanine Aminotransferase (ALT/SGPT) 8, Alkaline Phosphatase 81, C-Reactive Protein, Quantitative 0.6H, Total Protein 6.7, Albumin 3.0L, Globulin 3.7, Albumin/ Globulin Ratio 0.8L Height (Feet): 5 Height (Inches): 4.00 Weight (Pounds): 200 Neck: supple Cardiovascular: normal rate Respiratory/Chest: lungs clear Abdomen: normal bowel sounds, soft Edema: mild edema Neurologic: manager industrial II-XII grossly normal Objective skin po intertrigo rash on neck po cellulitis SAPPHIRE JACKSON Feb 14, 2017 21:46
[2017-02-15] VITALS: BP 109/68
[2017-02-15 03:48] VITALS: BP 118/63
[2017-02-15] MEDS: DuoNeb 0.5-3(2.5)mg/3ml neb HHN PRN ×3 (04:04→21:28)
--- NOTE | 2017-02-15 04:28 | Consultation ---
DATE OF CONSULTATION: INFECTIOUS DISEASE CONSULT CONSULTING PHYSICIAN: Stefano Valencia M.D. REFERRING PHYSICIAN: Derek Barrientos M.D. REASON FOR CONSULTATION: Evaluation of the patient for skin rash and antibiotic management. HISTORY OF PRESENT ILLNESS: The patient is an 86-year-old female with multiple problems, who was brought to the hospital due to worsening of skin rash that is pruritic. The patient lives at home. An Infectious Disease consultation has been requested for further evaluation of the patient and antibiotic management. PAST MEDICAL HISTORY: 1. Morbid obesity. 2. CAD. 3. CHF. 4. Hypertension. 5. COPD. 6. Seizure disorder. 7. Cerebral palsy. 8. Headache. MEDICATIONS: 1. Diflucan. 2. one dose of Elimite. 3. Triamcinolone. ALLERGIES: Azithromycin. SOCIAL HISTORY: Lives with the family at home. FAMILY HISTORY: Noncontributory. REVIEW OF SYSTEMS: A 10-point review was done and except what was mentioned above has been negative. PHYSICAL EXAMINATION: VITAL SIGNS: Temperature 97.5 degrees, blood pressure 116/75, pulse 79, and respiratory rate 18. HEENT: Mild pale conjunctivae. NECK: No lymphadenopathy. CHEST: Coarse breathing sounds. HEART: S1 and S2. ABDOMEN: Soft, obese, and nontender. EXTREMITIES: No cyanosis. NEUROLOGIC: Awake, alert, and sleepy at time. SKIN: The patient has rash suggestive of candidiasis and Candidal intertrigo. Rashes are not suggestive of scabies. LABORATORY DATA: White blood cells 11.4, hemoglobin 10, and platelets 266,000. UA, 10 to 15 red blood cells and 5 to 10 white blood cells. BUN 12 and creatinine 0.8. ALT, AST, and alkaline phosphatase are unremarkable. Wound culture is growing Staph aureus colonization. Blood culture is pending. Chest x-ray, no acute disease. ASSESSMENT: The patient is an 86-year-old female with multiple medical problems, who has, 1. Skin rash due to candidiasis and Candidal intertrigo, rashes are not suggestive of scabies. 2. Mild leukocytosis. PLAN: 1. We will continue the patient on oral Diflucan, decrease the dose to 100 mg daily. 2. cream to apply to the rashes three times a day. 3. I will stop topical steroids as this worsen the patient's candidiasis. 4. from the Infectious Disease point, the patient may get discharged with continued topical treatment for two to three months until the rashes resolve. Thank you Dr. Barrientos for allowing me to participate in the care of this patient. I will follow the patient with you during this hospitalization. Stefano Valencia M.D. DR: TERENCE JOB#: [id number] CC:
[2017-02-15] MEDS: Morphine Sulfate 2mg/ml Inj IVP PRN ×3 (04:29→20:58)
[2017-02-15] MEDS: NovoLOG Insulin Flexpen SUBQ SCH ×4 (06:30→21:00)
[2017-02-15 08:00] VITALS: BP 116/65
[2017-02-15] MEDS: DiphenhydrAMINE 50mg/ml Inj IVP PRN (09:25)
[2017-02-15] MEDS: Carvedilol 25mg Tab ORAL SCH ×2 (09:25→20:47)
[2017-02-15] MEDS: Heparin 5000 units/ml inj SUBQ SCH ×2 (09:31→20:49)
[2017-02-15] MEDS: Promethazine/Codeine 5ml UD ORAL PRN (10:59)
--- NOTE | 2017-02-15 11:15 | Pulmonology Progress Note ---
Assessment/Plan Assessment/Plan ASSESSMENT possible sepsis generalized dermatitis possible cellulitis Shayna intertrigo HTN DM COPD morbid obesity PLAN OF CARE MS floor abx ID follows blood cx preliminary negative on Fluconazole po and topical antifungal cream avoid steroids exam is not consistent with scabies infestations derm eval pending O2 HHN prn CXR no acute cardiopulmonary disease antitussive prn continue Singular no evidence of acute COPD exacerbation DVT GI prophylaxis wound care as per wound nurse evaluation BP management with CCB and BB BS management with SS of insulin pain management PT eval and Rx DVT, GI prophylaxes case discussed and evaluated by supervising physician Subjective Allergies: Coded Allergies: AZITHROMYCIN (Unverified Allergy, Severe, 05/13/13) Uncoded Allergies: unknown antibiotic (Allergy, Mild, 04/12/15) pt unsure of name of antibiotic, but states she has an allergy to "something" UNKNOWN ANTIBIOTIC (Allergy, Unknown, 05/27/12) Subjective mild leukocytosis on 02/14, afebrile no signs of respiratory distress reporting not feeling better Objective Last 24 Hour Vital Signs Date Time Temp Pulse Resp B/P Pulse Ox O2 Delivery O2 Flow Rate FiO2 02/15/17 09:47 79 16 Room Air 02/15/17 09:25 74 116/65 02/15/17 09:25 74 116/65 02/15/17 08:00 97.9 74 20 116/65 95 Nasal Cannula 3.0 02/15/17 04:16 Nasal Cannula 2.0 02/15/17 04:16 94 Nasal Cannula 2.0 02/15/17 04:14 82 18 93 Room Air 02/15/17 04:02 74 20 90 Room Air 02/15/17 03:48 97.7 70 20 118/63 92 Room Air 02/15/17 00:00 97.9 71 20 109/68 92 Room Air 02/14/17 21:22 77 109/67 02/14/17 20:25 77 18 Room Air 02/14/17 20:00 96.8 82 20 109/67 94 Room Air 02/14/17 16:00 97.5 79 18 116/71 94 Room Air 02/14/17 12:31 96.4 92 19 108/67 Room Air Intake and Output 02/14/17 02/15/17 19:00 07:00 Intake Total 120 ml Output Total 250 ml Balance -130 ml Intake Oral 120 ml Output Urine Total 250 ml Objective General Appearance: no apparent distress, chronically Ill, morbidly obese AA female Head: normocephalic, atraumatic Eyes: bilateral PERRL, no icterus ENT: moist mucus membranes Neck: supple, trachea midline, no meningismus Respiratory: lungs clear, normal breath sounds Cardiovascular : regular rate, rhythm, distant heart sounds, no edema Gastrointestinal: normal bowel sounds, non tender, obese, Genitourinary: intertrigo Musculoskeletal: back normal, gait/station normal, normal range of motion Neurologic: alert, oriented x3, no gross focal, diffuse weakness Psychiatric: mood/affect normal Skin: diffused generalized rash all over body with areas of increased erythema and skin breakdown Microbiology Date/Time Source Procedure Growth Status 02/12/17 12:00 Blood Blood Culture - Preliminary NO GROWTH AFTER 48 HOURS Resulted 02/12/17 12:00 Blood Blood Culture - Preliminary NO GROWTH AFTER 48 HOURS Resulted 02/12/17 20:30 Thigh Right Gram Stain - Final Resulted 02/12/17 20:30 Wound Culture - Preliminary Staphylococcus Aureus Resulted Current Medications Medications (Trade) Dose Ordered Sig/Atul Route PRN Reason Start Time Stop Time Status Last Admin Dose Admin Al Hydroxide/Mg Hydroxide (Mylanta) 30 ml Q6H PRN ORAL Dyspepsia 02/14/17 19:45 03/16/17 19:44 Albuterol/ Ipratropium (DuoNeb 0.5-3(2.5)mg/3ml) 3 ml Q4H PRN HHN dyspnea 02/12/17 13:45 02/17/17 13:44 02/15/17 04:04 Amlodipine Besylate (Norvasc) 2.5 mg DAILY ORAL 02/13/17 09:00 03/15/17 08:59 02/15/17 09:25 Carvedilol (Coreg) 25 mg Q12HR ORAL 02/12/17 21:00 03/14/17 20:59 02/15/17 09:25 Dextrose (Dextrose 50%) STAT PRN IV Hypoglycemia 02/12/17 13:45 03/14/17 13:44 Diphenhydramine HCl (Benadryl Cream) 1 applic THREE TIMES A DAY PRN TOPIC Itching 02/14/17 13:45 03/16/17 13:44 Diphenhydramine HCl (Benadryl) 50 mg Q6H PRN IVP Itching 02/13/17 14:30 03/15/17 14:29 02/15/17 09:25 Fluconazole (Diflucan) 100 mg QHS ORAL 02/14/17 21:00 02/21/17 20:59 02/14/17 21:23 Heparin Sodium (Porcine) (Heparin 5000 units/ml) 5,000 units EVERY 12 HOURS SUBQ 02/12/17 21:00 03/14/17 20:59 02/15/17 09:31 Insulin Aspart (NovoLOG) BEFORE MEALS AND HS SUBQ 02/13/17 16:30 03/15/17 16:29 02/14/17 11:54 Ketoconazole (Nizoral 2% Cream) 1 applic TID TOPIC 02/15/17 20:00 03/17/17 19:59 Lorazepam (Ativan 2mg/ml 1ml) 0.5 mg Q4H PRN IV For Anxiety 02/12/17 13:45 02/19/17 13:44 Montelukast Sodium (Singulair) 10 mg QPM ORAL 02/12/17 16:30 03/14/17 16:29 02/14/17 17:48 Morphine Sulfate (Morphine Sulfate) 2 mg Q4H PRN IVP severe pain 02-1102/12/17 13:45 02/19/17 13:44 02/15/17 09:25 Nitroglycerin (Ntg) 0.4 mg Q5M X 3 DOSES PRN SL Prn Chest Pain 02/12/17 13:45 03/14/17 13:44 Ondansetron HCl (Zofran) 4 mg Q6H PRN IVP Nausea & Vomiting 02/12/17 13:45 03/14/17 13:44 02/14/17 17:48 Pantoprazole (Protonix) 40 mg DAILY ORAL 02/15/17 09:00 03/17/17 08:59 02/15/17 09:25 Promethazine HCl/ Codeine (Phenergan with Codeine) 5 ml Q6H PRN ORAL cough 02/12/17 13:45 03/14/17 13:44 02/15/17 10:59 Temazepam (Restoril) 15 mg HSPRN PRN ORAL Insomnia 02/12/17 13:45 02/19/17 13:44 Pietro (Poornimavalente)Marixa NP Feb 15, 2017 11:15
[2017-02-15 12:00] VITALS: BP 103/55
[2017-02-15 16:00] VITALS: BP 105/55
[2017-02-15] MEDS: DiphenhydrAMINE & Zinc 28g Cream TOPIC PRN (17:26)
[2017-02-15] MEDS: Montelukast 10mg tablet ORAL SCH (17:30)
[2017-02-15 20:00] VITALS: BP 112/66
[2017-02-15] MEDS: Fluconazole 100mg tab ORAL SCH (20:48)
--- NOTE | 2017-02-15 23:07 | General Progress Note ---
Assessment/Plan Assessment/Plan cellulitis intertigo ho asthma no cad htn obesity diabetes abx per ID wound care avoid steroid pulmonary hygiene bp stable monitor accuchecks PT oob dvt and ulcer prophylaxis Subjective Allergies: Coded Allergies: AZITHROMYCIN (Unverified Allergy, Severe, 05/13/13) Uncoded Allergies: unknown antibiotic (Allergy, Mild, 04/12/15) pt unsure of name of antibiotic, but states she has an allergy to "something" UNKNOWN ANTIBIOTIC (Allergy, Unknown, 05/27/12) Subjective above noted Objective Last 24 Hour Vital Signs Date Time Temp Pulse Resp B/P Pulse Ox O2 Delivery O2 Flow Rate FiO2 02/15/17 21:36 79 20 99 Nasal Cannula 2.0 02/15/17 21:28 75 20 98 Nasal Cannula 2.0 02/15/17 20:47 75 112/66 02/15/17 20:00 97.9 75 20 112/66 Nasal Cannula 2.0 02/15/17 19:38 Nasal Cannula 3.0 32 02/15/17 19:38 69 16 Nasal Cannula 3.0 02/15/17 19:38 97 Nasal Cannula 3.0 32 02/15/17 16:00 97.5 62 20 105/55 97 Nasal Cannula 3.0 02/15/17 12:00 98.2 60 20 103/55 100 Nasal Cannula 3.0 02/15/17 11:30 84 18 95 Nasal Cannula 02/15/17 11:24 76 18 97 Nasal Cannula 02/15/17 09:47 79 16 Room Air 02/15/17 09:25 74 116/65 02/15/17 09:25 74 116/65 02/15/17 08:00 97.9 74 20 116/65 95 Nasal Cannula 3.0 02/15/17 04:16 Nasal Cannula 2.0 02/15/17 04:16 94 Nasal Cannula 2.0 02/15/17 04:14 82 18 93 Room Air 02/15/17 04:02 74 20 90 Room Air 02/15/17 03:48 97.7 70 20 118/63 92 Room Air 02/15/17 00:00 97.9 71 20 109/68 92 Room Air Intake and Output 02/14/17 02/15/17 19:00 07:00 Intake Total 120 ml Output Total 250 ml Balance -130 ml Intake Oral 120 ml Output Urine Total 250 ml Height (Feet): 5 Height (Inches): 4.00 Weight (Pounds): 200 General Appearance: WD/WN Cardiovascular: normal rate Respiratory/Chest: lungs clear Abdomen: soft Objective skin po intertrigo rash on neck pos cellulitis SAPPHIRE JACKSON Feb 15, 2017 23:07
[2017-02-16] VITALS: BP 121/70
[2017-02-16] MEDS: Promethazine/Codeine 5ml UD ORAL PRN ×2 (00:03→15:53)
[2017-02-16] MEDS: DuoNeb 0.5-3(2.5)mg/3ml neb HHN PRN (01:22)
[2017-02-16] MEDS: DiphenhydrAMINE 50mg/ml Inj IVP PRN ×3 (01:37→15:58)
[2017-02-16] MEDS: Morphine Sulfate 2mg/ml Inj IVP PRN ×3 (02:09→15:48)
[2017-02-16] MEDS: NovoLOG Insulin Flexpen SUBQ SCH ×4 (06:09→20:40)
[2017-02-16 08:21] VITALS: BP 113/61
[2017-02-16] MEDS: Carvedilol 25mg Tab ORAL SCH ×2 (09:24→21:26)
[2017-02-16] MEDS: Heparin 5000 units/ml inj SUBQ SCH ×2 (09:30→21:29)
[2017-02-16 11:40] VITALS: BP 113/62
--- NOTE | 2017-02-16 11:45 | Pulmonology Progress Note ---
Assessment/Plan Assessment/Plan ASSESSMENT possible sepsis generalized dermatitis possible cellulitis Shayna intertrigo HTN DM COPD morbid obesity PLAN OF CARE MS floor abx ID follows blood cx preliminary negative on Fluconazole po and topical antifungal cream avoid steroids exam is not consistent with scabies infestations derm eval pending O2 HHN prn CXR no acute cardiopulmonary disease antitussive prn continue Singular no evidence of acute COPD exacerbation DVT GI prophylaxis wound care as per wound nurse evaluation BP management with CCB and BB BS management with SS of insulin pain management PT eval and Rx DVT, GI prophylaxes case discussed and evaluated by supervising physician Subjective Allergies: Coded Allergies: AZITHROMYCIN (Unverified Allergy, Severe, 05/13/13) Uncoded Allergies: unknown antibiotic (Allergy, Mild, 04/12/15) pt unsure of name of antibiotic, but states she has an allergy to "something" UNKNOWN ANTIBIOTIC (Allergy, Unknown, 05/27/12) Subjective mild leukocytosis on 02/14, afebrile no signs of respiratory distress reporting not feeling better severe itching , generalized rash Objective Last 24 Hour Vital Signs Date Time Temp Pulse Resp B/P Pulse Ox O2 Delivery O2 Flow Rate FiO2 02/16/17 11:40 98.6 74 21 113/62 96 Nasal Cannula 2.0 02/16/17 09:25 69 113/61 02/16/17 09:24 69 113/61 02/16/17 08:21 98.1 69 21 113/61 96 Nasal Cannula 2.0 02/16/17 01:34 78 20 99 Nasal Cannula 2.0 02/16/17 01:23 77 22 97 Nasal Cannula 2.0 02/16/17 00:00 97.9 75 20 121/70 99 Nasal Cannula 2.0 02/15/17 21:36 79 20 99 Nasal Cannula 2.0 02/15/17 21:28 75 20 98 Nasal Cannula 2.0 02/15/17 20:47 75 112/66 02/15/17 20:00 97.9 75 20 112/66 Nasal Cannula 2.0 02/15/17 19:38 Nasal Cannula 3.0 32 02/15/17 19:38 69 16 Nasal Cannula 3.0 32 02/15/17 19:38 97 Nasal Cannula 3.0 32 02/15/17 16:00 97.5 62 20 105/55 97 Nasal Cannula 3.0 02/15/17 12:00 98.2 60 20 103/55 100 Nasal Cannula 3.0 Intake and Output 02/15/17 02/16/17 19:00 07:00 Intake Total 120 ml Output Total 300 ml 600 ml Balance -180 ml -600 ml Intake Oral 120 ml Output Urine Total 300 ml 600 ml Objective General Appearance: no apparent distress, chronically Ill, morbidly obese AA female Head: normocephalic, atraumatic Eyes: bilateral PERRL, no icterus ENT: moist mucus membranes Neck: supple, trachea midline, no meningismus Respiratory: lungs clear, normal breath sounds Cardiovascular : regular rate, rhythm, distant heart sounds, no edema Gastrointestinal: normal bowel sounds, non tender, obese, Genitourinary: intertrigo Musculoskeletal: back normal, gait/station normal, normal range of motion Neurologic: alert, oriented x3, no gross focal, diffuse weakness Psychiatric: mood/affect normal Skin: diffused generalized rash all over body with areas of increased erythema , scaly, pruritic Current Medications Medications (Trade) Dose Ordered Sig/Atul Route PRN Reason Start Time Stop Time Status Last Admin Dose Admin Al Hydroxide/Mg Hydroxide (Mylanta) 30 ml Q6H PRN ORAL Dyspepsia 02/14/17 19:45 03/16/17 19:44 Albuterol/ Ipratropium (DuoNeb 0.5-3(2.5)mg/3ml) 3 ml Q4H PRN HHN dyspnea 02/12/17 13:45 02/17/17 13:44 02/16/17 01:22 Amlodipine Besylate (Norvasc) 2.5 mg DAILY ORAL 02/13/17 09:00 03/15/17 08:59 02/16/17 09:25 Carvedilol (Coreg) 25 mg Q12HR ORAL 02/12/17 21:00 03/14/17 20:59 02/16/17 09:24 Dextrose (Dextrose 50%) STAT PRN IV Hypoglycemia 02/12/17 13:45 03/14/17 13:44 Diphenhydramine HCl (Benadryl Cream) 1 applic THREE TIMES A DAY PRN TOPIC Itching 02/14/17 13:45 03/16/17 13:44 02/15/17 17:26 Diphenhydramine HCl (Benadryl) 50 mg Q6H PRN IVP Itching 02/13/17 14:30 03/15/17 14:29 02/16/17 10:18 Fluconazole (Diflucan) 100 mg QHS ORAL 02/14/17 21:00 02/21/17 20:59 02/15/17 20:48 Heparin Sodium (Porcine) (Heparin 5000 units/ml) 5,000 units EVERY 12 HOURS SUBQ 02/12/17 21:00 03/14/17 20:59 02/16/17 09:30 Insulin Aspart (NovoLOG) BEFORE MEALS AND HS SUBQ 02/13/17 16:30 03/15/17 16:29 02/14/17 11:54 Ketoconazole (Nizoral 2% Cream) 1 applic TID TOPIC 02/15/17 20:00 03/17/17 19:59 02/16/17 09:00 Lorazepam (Ativan 2mg/ml 1ml) 0.5 mg Q4H PRN IV For Anxiety 02/12/17 13:45 02/19/17 13:44 02/15/17 17:25 Montelukast Sodium (Singulair) 10 mg QPM ORAL 02/12/17 16:30 03/14/17 16:29 02/15/17 17:30 Morphine Sulfate (Morphine Sulfate) 2 mg Q4H PRN IVP severe pain 02-1102/12/17 13:45 02/19/17 13:44 02/16/17 10:28 Nitroglycerin (Ntg) 0.4 mg Q5M X 3 DOSES PRN SL Prn Chest Pain 02/12/17 13:45 03/14/17 13:44 Ondansetron HCl (Zofran) 4 mg Q6H PRN IVP Nausea & Vomiting 02/12/17 13:45 03/14/17 13:44 02/14/17 17:48 Pantoprazole (Protonix) 40 mg DAILY ORAL 02/15/17 09:00 03/17/17 08:59 02/16/17 09:26 Promethazine HCl/ Codeine (Phenergan with Codeine) 5 ml Q6H PRN ORAL cough 02/12/17 13:45 03/14/17 13:44 02/16/17 00:03 Temazepam (Restoril) 15 mg HSPRN PRN ORAL Insomnia 02/12/17 13:45 02/19/17 13:44 Pietro (Poornimavalente)Marixa NP Feb 16, 2017 11:45
[2017-02-16 15:48] VITALS: BP 124/69
[2017-02-16] MEDS: Montelukast 10mg tablet ORAL SCH (18:30)
[2017-02-16 20:00] VITALS: BP 119/66
--- NOTE | 2017-02-16 20:24 | Infectious Diseases Prog Note ---
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 No repeat CBC // CAD / CHF // COPD // Seizure disorder // Cerebral palsy // Morbid obesity // Azithromycin allergy // Full Code PLAN: - continue PO fluconazole, nizoral cream until rash resolved - f/u final cultures - monitor CBC, temperatures - monitor BMP - avoid steroids Subjective Allergies: Coded Allergies: AZITHROMYCIN (Unverified Allergy, Severe, 05/13/13) Uncoded Allergies: unknown antibiotic (Allergy, Mild, 04/12/15) pt unsure of name of antibiotic, but states she has an allergy to "something" Subjective remains afebrile Objective Vital Signs Last 24 Hour Vital Signs Date Time Temp Pulse Resp B/P Pulse Ox O2 Delivery O2 Flow Rate FiO2 02/16/17 19:28 71 18 Nasal Cannula 3.0 02/16/17 19:28 Nasal Cannula 3.0 02/16/17 19:28 96 Nasal Cannula 3.0 02/16/17 15:48 98.2 79 19 124/69 96 Nasal Cannula 2.0 02/16/17 11:40 98.6 74 21 113/62 96 Nasal Cannula 2.0 02/16/17 09:25 69 113/61 02/16/17 09:24 69 113/61 02/16/17 08:21 98.1 69 21 113/61 96 Nasal Cannula 2.0 02/16/17 06:47 Nasal Cannula 3.0 02/16/17 06:46 96 Nasal Cannula 3.0 02/16/17 06:45 72 18 Nasal Cannula 3.0 02/16/17 01:34 78 20 99 Nasal Cannula 2.0 02/16/17 01:23 77 22 97 Nasal Cannula 2.0 02/16/17 00:00 97.9 75 20 121/70 99 Nasal Cannula 2.0 02/15/17 21:36 79 20 99 Nasal Cannula 2.0 02/15/17 21:28 75 20 98 Nasal Cannula 2.0 02/15/17 20:47 75 112/66 Height (Feet): 5 Height (Inches): 4.00 Weight (Pounds): 200 General Appearance: no acute distress Respiratory/Chest: no respiratory distress Cardiovascular: normal rate, regular rhythm Abdomen: normal bowel sounds, soft, non tender, non distended Skin: rash Current Medications Medications (Trade) Dose Ordered Sig/Atul Route PRN Reason Start Time Stop Time Status Last Admin Dose Admin Al Hydroxide/Mg Hydroxide (Mylanta) 30 ml Q6H PRN ORAL Dyspepsia 02/14/17 19:45 03/16/17 19:44 Albuterol/ Ipratropium (DuoNeb 0.5-3(2.5)mg/3ml) 3 ml Q4H PRN HHN dyspnea 02/12/17 13:45 02/17/17 13:44 02/16/17 01:22 Amlodipine Besylate (Norvasc) 2.5 mg DAILY ORAL 02/13/17 09:00 03/15/17 08:59 02/16/17 09:25 Carvedilol (Coreg) 25 mg Q12HR ORAL 02/12/17 21:00 03/14/17 20:59 02/16/17 09:24 Dextrose (Dextrose 50%) STAT PRN IV Hypoglycemia 02/12/17 13:45 03/14/17 13:44 Diphenhydramine HCl (Benadryl Cream) 1 applic THREE TIMES A DAY PRN TOPIC Itching 02/14/17 13:45 03/16/17 13:44 02/15/17 17:26 Diphenhydramine HCl (Benadryl) 50 mg Q6H PRN IVP Itching 02/13/17 14:30 03/15/17 14:29 02/16/17 15:58 Fluconazole (Diflucan) 100 mg QHS ORAL 02/14/17 21:00 02/21/17 20:59 02/15/17 20:48 Heparin Sodium (Porcine) (Heparin 5000 units/ml) 5,000 units EVERY 12 HOURS SUBQ 02/12/17 21:00 03/14/17 20:59 02/16/17 09:30 Insulin Aspart (NovoLOG) BEFORE MEALS AND HS SUBQ 02/13/17 16:30 03/15/17 16:29 02/14/17 11:54 Ketoconazole (Nizoral 2% Cream) 1 applic TID TOPIC 02/15/17 20:00 03/17/17 19:59 02/16/17 18:30 Lorazepam (Ativan 2mg/ml 1ml) 0.5 mg Q4H PRN IV For Anxiety 02/12/17 13:45 02/19/17 13:44 02/15/17 17:25 Montelukast Sodium (Singulair) 10 mg QPM ORAL 02/12/17 16:30 03/14/17 16:29 02/16/17 18:30 Morphine Sulfate (Morphine Sulfate) 2 mg Q4H PRN IVP severe pain 02-1102/12/17 13:45 02/19/17 13:44 02/16/17 15:48 Nitroglycerin (Ntg) 0.4 mg Q5M X 3 DOSES PRN SL Prn Chest Pain 02/12/17 13:45 03/14/17 13:44 Ondansetron HCl (Zofran) 4 mg Q6H PRN IVP Nausea & Vomiting 02/12/17 13:45 03/14/17 13:44 02/14/17 17:48 Pantoprazole (Protonix) 40 mg DAILY ORAL 02/15/17 09:00 03/17/17 08:59 02/16/17 09:26 Promethazine HCl/ Codeine (Phenergan with Codeine) 5 ml Q6H PRN ORAL cough 02/12/17 13:45 03/14/17 13:44 02/16/17 15:53 Temazepam (Restoril) 15 mg HSPRN PRN ORAL Insomnia 02/12/17 13:45 02/19/17 13:44 PAULINO HILARIO Feb 16, 2017 20:24
[2017-02-16] MEDS: Fluconazole 100mg tab ORAL SCH (21:26)
--- NOTE | 2017-02-16 22:15 | General Progress Note ---
Assessment/Plan Assessment/Plan cellulitis intertigo dermatitis ho asthma no cad htn obesity diabetes abx per ID there is no dermatoglist at this hospital patient will need to see derm as out patient wound care avoid steroid pulmonary hygiene bp stable monitor accuchecks PT oob dvt and ulcer prophylaxis Subjective Allergies: Coded Allergies: AZITHROMYCIN (Unverified Allergy, Severe, 05/13/13) Uncoded Allergies: unknown antibiotic (Allergy, Mild, 04/12/15) pt unsure of name of antibiotic, but states she has an allergy to "something" Subjective above noted co itching skin no chest painor sob Objective Last 24 Hour Vital Signs Date Time Temp Pulse Resp B/P Pulse Ox O2 Delivery O2 Flow Rate FiO2 02/16/17 21:26 80 119/66 02/16/17 20:00 98.1 80 20 119/66 97 Nasal Cannula 2.0 02/16/17 19:28 71 18 Nasal Cannula 3.0 02/16/17 19:28 Nasal Cannula 3.0 02/16/17 19:28 96 Nasal Cannula 3.0 02/16/17 15:48 98.2 79 19 124/69 96 Nasal Cannula 2.0 02/16/17 11:40 98.6 74 21 113/62 96 Nasal Cannula 2.0 02/16/17 09:25 69 113/61 02/16/17 09:24 69 113/61 02/16/17 08:21 98.1 69 21 113/61 96 Nasal Cannula 2.0 02/16/17 06:47 Nasal Cannula 3.0 02/16/17 06:46 96 Nasal Cannula 3.0 02/16/17 06:45 72 18 Nasal Cannula 3.0 02/16/17 01:34 78 20 99 Nasal Cannula 2.0 28 02/16/17 01:23 77 22 97 Nasal Cannula 2.0 28 02/16/17 00:00 97.9 75 20 121/70 99 Nasal Cannula 2.0 28 Intake and Output 02/15/17 02/16/17 19:00 07:00 Intake Total 120 ml Output Total 300 ml 600 ml Balance -180 ml -600 ml Intake Oral 120 ml Output Urine Total 300 ml 600 ml Height (Feet): 5 Height (Inches): 4.00 Weight (Pounds): 200 General Appearance: WD/WN Cardiovascular: normal rate Respiratory/Chest: lungs clear Objective skin po intertrigo rash on neck chest backpos cellulitis SAPPHIRE JACKSON Feb 16, 2017 22:15
[2017-02-16] MEDS: Morphine Sulfate 2mg/ml Inj SUBQ PRN (22:17)
[2017-02-17] VITALS: BP 115/59
[2017-02-17] MEDS: Promethazine/Codeine 5ml UD ORAL PRN ×2 (01:44→08:13)
[2017-02-17 04:00] VITALS: BP 121/63
[2017-02-17] MEDS: NovoLOG Insulin Flexpen SUBQ SCH ×4 (06:08→21:00)
[2017-02-17] MEDS: Morphine Sulfate 2mg/ml Inj SUBQ PRN ×3 (07:01→21:33)
[2017-02-17 07:15] LABS: EOSINOPHILS % (AUTO) 7.3 % (0.0-3.0); LYMPHOCYTES % (AUTO) 9.8 % (20.0-45.0); MEAN CORPUSCULAR VOLUME 84 FL (80-99); MONOCYTES % (AUTO) 12.9 % (1.0-10.0); PLATELET COUNT 238 K/UL (150-450); RED BLOOD COUNT 4.13 M/UL (4.20-5.40); RED CELL DISTRIBUTION WIDTH 15.5 % (11.6-14.8); WHITE BLOOD COUNT 7.9 K/UL (4.8-10.8)
[2017-02-17 07:42] LABS: ANION GAP 10 (5-15); CALCIUM 8.5 mg/dL (8.6-10.2); CARBON DIOXIDE 28 mEQ/L (20-30); CHLORIDE 102 mEQ/L (98-107); CREATININE 0.8 mg/dL (0.5-0.9); HEMOLYSIS 1; POTASSIUM 4.2 mEQ/L (3.4-4.9); SODIUM 140 mEQ/L (135-145)
--- NOTE | 2017-02-17 07:43 | Infectious Diseases Prog Note ---
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 // Acute mild leukocytosis - resolved, afebrile // CAD / CHF // COPD // Seizure disorder // Cerebral palsy // Morbid obesity // Azithromycin allergy // Full Code PLAN: - continue PO fluconazole, nizoral cream until rash resolved - f/u final cultures - monitor CBC, temperatures - monitor BMP - avoid steroids Subjective Allergies: Coded Allergies: AZITHROMYCIN (Unverified Allergy, Severe, 05/13/13) Uncoded Allergies: unknown antibiotic (Allergy, Mild, 04/12/15) pt unsure of name of antibiotic, but states she has an allergy to "something" Subjective remains afebrile c/o itching Objective Vital Signs Last 24 Hour Vital Signs Date Time Temp Pulse Resp B/P Pulse Ox O2 Delivery O2 Flow Rate FiO2 02/17/17 07:39 Nasal Cannula 3.0 32 02/17/17 07:38 98 Nasal Cannula 3.0 02/17/17 07:37 84 18 Nasal Cannula 3.0 02/17/17 04:00 98.1 72 18 121/63 98 Nasal Cannula 2.0 02/17/17 00:00 98.2 73 18 115/59 96 Nasal Cannula 2.0 02/16/17 22:47 98.1 02/16/17 21:26 80 119/66 02/16/17 20:00 98.1 80 20 119/66 97 Nasal Cannula 2.0 02/16/17 19:28 71 18 Nasal Cannula 3.0 02/16/17 19:28 Nasal Cannula 3.0 02/16/17 19:28 96 Nasal Cannula 3.0 02/16/17 15:48 98.2 79 19 124/69 96 Nasal Cannula 2.0 02/16/17 11:40 98.6 74 21 113/62 96 Nasal Cannula 2.0 02/16/17 09:25 69 113/61 02/16/17 09:24 69 113/61 02/16/17 08:21 98.1 69 21 113/61 96 Nasal Cannula 2.0 Height (Feet): 5 Height (Inches): 4.00 Weight (Pounds): 200 General Appearance: no acute distress Respiratory/Chest: no respiratory distress Cardiovascular: normal rate, regular rhythm Abdomen: normal bowel sounds, soft, non tender, non distended Skin: rash Laboratory Tests Test 02/17/17 04:55 White Blood Count 7.9 K/UL (4.8-10.8) Red Blood Count 4.13 M/UL (4.20-5.40) L Hemoglobin 10.7 G/DL (12.0-16.0) L Hematocrit 34.7 % (37.0-47.0) L Mean Corpuscular Volume 84 FL (80-99) Mean Corpuscular Hemoglobin 26.0 PG (27.0-31.0) L Mean Corpuscular Hemoglobin Concent 31.0 G/DL (32.0-36.0) L Red Cell Distribution Width 15.5 % (11.6-14.8) H Platelet Count 238 K/UL (150-450) Mean Platelet Volume 7.0 FL (6.5-10.1) Neutrophils (%) (Auto) 67.0 % (45.0-75.0) Lymphocytes (%) (Auto) 9.8 % (20.0-45.0) L Monocytes (%) (Auto) 12.9 % (1.0-10.0) H Eosinophils (%) (Auto) 7.3 % (0.0-3.0) H Basophils (%) (Auto) 3.0 % (0.0-2.0) H Sodium Level Pending Potassium Level Pending Chloride Level Pending Carbon Dioxide Level Pending Blood Urea Nitrogen Pending Creatinine Pending Estimat Glomerular Filtration Rate Pending Glucose Level Pending Calcium Level Pending Current Medications Medications (Trade) Dose Ordered Sig/Atul Route PRN Reason Start Time Stop Time Status Last Admin Dose Admin Al Hydroxide/Mg Hydroxide (Mylanta) 30 ml Q6H PRN ORAL Dyspepsia 02/14/17 19:45 03/16/17 19:44 Albuterol/ Ipratropium (DuoNeb 0.5-3(2.5)mg/3ml) 3 ml Q4H PRN HHN dyspnea 02/12/17 13:45 02/17/17 13:44 02/16/17 01:22 Amlodipine Besylate (Norvasc) 2.5 mg DAILY ORAL 02/13/17 09:00 03/15/17 08:59 02/16/17 09:25 Carvedilol (Coreg) 25 mg Q12HR ORAL 02/12/17 21:00 03/14/17 20:59 02/16/17 21:26 Dextrose (Dextrose 50%) STAT PRN IV Hypoglycemia 02/12/17 13:45 03/14/17 13:44 Diphenhydramine HCl (Benadryl Cream) 1 applic THREE TIMES A DAY PRN TOPIC Itching 02/14/17 13:45 03/16/17 13:44 02/15/17 17:26 Diphenhydramine HCl (Benadryl) 50 mg Q6H PRN ORAL Itching 02/16/17 22:00 03/18/17 21:59 02/17/17 07:01 Fluconazole (Diflucan) 100 mg QHS ORAL 02/14/17 21:00 02/21/17 20:59 02/16/17 21:26 Heparin Sodium (Porcine) (Heparin 5000 units/ml) 5,000 units EVERY 12 HOURS SUBQ 02/12/17 21:00 03/14/17 20:59 02/16/17 21:29 Insulin Aspart (NovoLOG) BEFORE MEALS AND HS SUBQ 02/13/17 16:30 03/15/17 16:29 02/14/17 11:54 Ketoconazole (Nizoral 2% Cream) 1 applic TID TOPIC 02/15/17 20:00 03/17/17 19:59 02/16/17 18:30 Lorazepam (Ativan) 0.5 mg Q4H PRN ORAL For Anxiety 02/16/17 22:00 02/23/17 21:59 Montelukast Sodium (Singulair) 10 mg QPM ORAL 02/12/17 16:30 03/14/17 16:29 02/16/17 18:30 Morphine Sulfate (Morphine Sulfate) 2 mg Q4H PRN SUBQ severe pain 7-02/17/17 01:45 02/24/17 01:44 02/17/17 07:01 Nitroglycerin (Ntg) 0.4 mg Q5M X 3 DOSES PRN SL Prn Chest Pain 02/12/17 13:45 03/14/17 13:44 Ondansetron HCl (Zofran) 4 mg Q6H PRN IVP Nausea & Vomiting 02/12/17 13:45 03/14/17 13:44 02/14/17 17:48 Pantoprazole (Protonix) 40 mg DAILY ORAL 02/15/17 09:00 03/17/17 08:59 02/16/17 09:26 Promethazine HCl/ Codeine (Phenergan with Codeine) 5 ml Q6H PRN ORAL cough 02/12/17 13:45 03/14/17 13:44 02/17/17 01:44 Temazepam (Restoril) 15 mg HSPRN PRN ORAL Insomnia 02/12/17 13:45 02/19/17 13:44 PAULINO HILARIO Feb 17, 2017 07:43
[2017-02-17 07:52] VITALS: BP 130/72
[2017-02-17] MEDS: LORazepam 0.5mg tab ORAL PRN ×2 (08:13→21:32)
[2017-02-17] MEDS: Carvedilol 25mg Tab ORAL SCH ×2 (08:15→21:32)
[2017-02-17] MEDS: Heparin 5000 units/ml inj SUBQ SCH ×2 (08:22→21:34)
--- NOTE | 2017-02-17 11:20 | Pulmonology Progress Note ---
Assessment/Plan Assessment/Plan ASSESSMENT possible sepsis generalized dermatitis possible cellulitis Shayna intertrigo HTN DM COPD morbid obesity PLAN OF CARE MS floor abx ID follows blood cx preliminary negative on Fluconazole po and topical antifungal cream avoid steroids exam is not consistent with scabies infestations derm eval pending , but apparently unavailable O2 HHN prn CXR no acute cardiopulmonary disease antitussive prn continue Singular no evidence of acute COPD exacerbation DVT GI prophylaxis wound care as per wound nurse evaluation BP management with CCB and BB BS management with SS of insulin pain management PT eval and Rx DVT, GI prophylaxes case discussed and evaluated by supervising physician Subjective Allergies: Coded Allergies: AZITHROMYCIN (Unverified Allergy, Severe, 05/13/13) Uncoded Allergies: unknown antibiotic (Allergy, Mild, 04/12/15) pt unsure of name of antibiotic, but states she has an allergy to "something" Subjective mild leukocytosis on 02/14, afebrile no signs of respiratory distress but reporting not feeling better still with severe itching , generalized rash Objective Last 24 Hour Vital Signs Date Time Temp Pulse Resp B/P Pulse Ox O2 Delivery O2 Flow Rate FiO2 02/17/17 08:21 98.2 02/17/17 08:21 86 130/72 02/17/17 08:15 86 130/72 02/17/17 07:52 98.2 86 21 130/72 100 Nasal Cannula 2.0 02/17/17 07:39 Nasal Cannula 3.0 32 02/17/17 07:38 98 Nasal Cannula 3.0 02/17/17 07:37 84 18 Nasal Cannula 3.0 02/17/17 04:00 98.1 72 18 121/63 98 Nasal Cannula 2.0 02/17/17 00:00 98.2 73 18 115/59 96 Nasal Cannula 2.0 02/16/17 21:26 80 119/66 02/16/17 20:00 98.1 80 20 119/66 97 Nasal Cannula 2.0 02/16/17 19:28 71 18 Nasal Cannula 3.0 02/16/17 19:28 Nasal Cannula 3.0 02/16/17 19:28 96 Nasal Cannula 3.0 02/16/17 15:48 98.2 79 19 124/69 96 Nasal Cannula 2.0 02/16/17 11:40 98.6 74 21 113/62 96 Nasal Cannula 2.0 Intake and Output 02/16/17 02/17/17 19:00 07:00 Intake Total 930 ml 360 ml Output Total 400 ml 500 ml Balance 530 ml -140 ml Intake Oral 930 ml 360 ml Output Urine Total 400 ml 500 ml Objective General Appearance: no apparent distress, chronically Ill, morbidly obese AA female Head: normocephalic, atraumatic Eyes: bilateral PERRL, no icterus ENT: moist mucus membranes Neck: supple, trachea midline, no meningismus Respiratory: lungs clear, normal breath sounds Cardiovascular : regular rate, rhythm, distant heart sounds, no edema Gastrointestinal: normal bowel sounds, non tender, obese, Genitourinary: intertrigo Musculoskeletal: back normal, gait/station normal, normal range of motion Neurologic: alert, oriented x3, no gross focal, diffuse weakness Psychiatric: mood/affect normal Skin: diffused generalized rash all over body with areas of increased erythema , scaly, pruritic Laboratory Tests 02/17/17 04:55: White Blood Count 7.9, Red Blood Count 4.13L, Hemoglobin 10.7L, Hematocrit 34.7L , Mean Corpuscular Volume 84, Mean Corpuscular Hemoglobin 26.0L, Mean Corpuscular Hemoglobin Concent 31.0L, Red Cell Distribution Width 15.5H, Platelet Count 238, Mean Platelet Volume 7.0, Neutrophils (%) (Auto) 67.0, Lymphocytes (%) (Auto) 9.8L, Monocytes (%) (Auto) 12.9H, Eosinophils (%) (Auto) 7.3H, Basophils (%) (Auto) 3.0H, Sodium Level 140, Potassium Level 4.2, Chloride Level 102, Carbon Dioxide Level 28, Anion Gap 10, Blood Urea Nitrogen 10, Creatinine 0.8, Estimat Glomerular Filtration Rate , Glucose Level 88, Calcium Level 8.5L Current Medications Medications (Trade) Dose Ordered Sig/Atul Route PRN Reason Start Time Stop Time Status Last Admin Dose Admin Al Hydroxide/Mg Hydroxide (Mylanta) 30 ml Q6H PRN ORAL Dyspepsia 02/14/17 19:45 03/16/17 19:44 Albuterol/ Ipratropium (DuoNeb 0.5-3(2.5)mg/3ml) 3 ml Q4H PRN HHN dyspnea 02/12/17 13:45 02/17/17 13:44 02/16/17 01:22 Amlodipine Besylate (Norvasc) 2.5 mg DAILY ORAL 02/13/17 09:00 03/15/17 08:59 02/17/17 08:21 Carvedilol (Coreg) 25 mg Q12HR ORAL 02/12/17 21:00 03/14/17 20:59 02/17/17 08:15 Dextrose (Dextrose 50%) STAT PRN IV Hypoglycemia 02/12/17 13:45 03/14/17 13:44 Diphenhydramine HCl (Benadryl Cream) 1 applic THREE TIMES A DAY PRN TOPIC Itching 02/14/17 13:45 03/16/17 13:44 02/15/17 17:26 Diphenhydramine HCl (Benadryl) 50 mg Q6H PRN ORAL Itching 02/16/17 22:00 03/18/17 21:59 02/17/17 07:01 Fluconazole (Diflucan) 100 mg QHS ORAL 02/14/17 21:00 02/21/17 20:59 02/16/17 21:26 Heparin Sodium (Porcine) (Heparin 5000 units/ml) 5,000 units EVERY 12 HOURS SUBQ 02/12/17 21:00 03/14/17 20:59 02/17/17 08:22 Insulin Aspart (NovoLOG) BEFORE MEALS AND HS SUBQ 02/13/17 16:30 03/15/17 16:29 02/14/17 11:54 Ketoconazole (Nizoral 2% Cream) 1 applic TID TOPIC 02/15/17 20:00 03/17/17 19:59 02/17/17 08:23 Lorazepam (Ativan) 0.5 mg Q4H PRN ORAL For Anxiety 02/16/17 22:00 02/23/17 21:59 02/17/17 08:13 Montelukast Sodium (Singulair) 10 mg QPM ORAL 02/12/17 16:30 03/14/17 16:29 02/16/17 18:30 Morphine Sulfate (Morphine Sulfate) 2 mg Q4H PRN SUBQ severe pain 702/17/17 01:45 02/24/17 01:44 02/17/17 07:01 Nitroglycerin (Ntg) 0.4 mg Q5M X 3 DOSES PRN SL Prn Chest Pain 02/12/17 13:45 03/14/17 13:44 Ondansetron HCl (Zofran) 4 mg Q6H PRN IVP Nausea & Vomiting 02/12/17 13:45 03/14/17 13:44 02/14/17 17:48 Pantoprazole (Protonix) 40 mg DAILY ORAL 02/15/17 09:00 03/17/17 08:59 02/17/17 08:15 Promethazine HCl/ Codeine (Phenergan with Codeine) 5 ml Q6H PRN ORAL cough 02/12/17 13:45 03/14/17 13:44 02/17/17 08:13 Temazepam (Restoril) 15 mg HSPRN PRN ORAL Insomnia 02/12/17 13:45 02/19/17 13:44 Pietro ([facility])Marixa NP Feb 17, 2017 11:20
[2017-02-17 11:33] VITALS: BP 122/77
[2017-02-17 15:42] VITALS: BP 126/75
[2017-02-17] MEDS: DiphenhydrAMINE & Zinc 28g Cream TOPIC PRN (17:27)
[2017-02-17] MEDS: Montelukast 10mg tablet ORAL SCH (17:27)
[2017-02-17 20:00] VITALS: BP 113/66
[2017-02-17] MEDS: Fluconazole 100mg tab ORAL SCH (21:32)
[2017-02-18] VITALS: BP 107/64
[2017-02-18 04:00] VITALS: BP 112/62
[2017-02-18] MEDS: NovoLOG Insulin Flexpen SUBQ SCH ×3 (06:30→16:30)
[2017-02-18 07:47] LABS: BASOPHILS % (AUTO) 2.4 % (0.0-2.0); EOSINOPHILS % (AUTO) 6.8 % (0.0-3.0); MEAN CORPUSCULAR HEMOGLOBIN 26.4 PG (27.0-31.0); MEAN CORPUSCULAR HGB CONC 31.5 G/DL (32.0-36.0); MEAN CORPUSCULAR VOLUME 84 FL (80-99); MONOCYTES % (AUTO) 14.9 % (1.0-10.0); PLATELET COUNT 232 K/UL (150-450); RED BLOOD COUNT 4.07 M/UL (4.20-5.40); RED CELL DISTRIBUTION WIDTH 15.4 % (11.6-14.8); WHITE BLOOD COUNT 8.3 K/UL (4.8-10.8)
[2017-02-18 08:00] VITALS: BP 149/64
[2017-02-18] MEDS: LORazepam 0.5mg tab ORAL PRN ×2 (08:04→17:20)
[2017-02-18] MEDS: Carvedilol 25mg Tab ORAL SCH (08:05)
[2017-02-18] MEDS: Morphine Sulfate 2mg/ml Inj SUBQ PRN ×2 (08:07→17:21)
[2017-02-18] MEDS: Heparin 5000 units/ml inj SUBQ SCH (08:10)
[2017-02-18 08:15] LABS: ANION GAP 10 (5-15); CALCIUM 8.7 mg/dL (8.6-10.2); CARBON DIOXIDE 28 mEQ/L (20-30); CHLORIDE 100 mEQ/L (98-107); CREATININE 0.8 mg/dL (0.5-0.9); HEMOLYSIS 3; POTASSIUM 3.8 mEQ/L (3.4-4.9); SODIUM 138 mEQ/L (135-145)
[2017-02-18] MEDS: DiphenhydrAMINE & Zinc 28g Cream TOPIC PRN (08:15)
[2017-02-18] MEDS ORDERED: NIZORAL 2% C1 APPLIC TOPIC (14:13)
--- NOTE | 2017-02-18 14:16 | Pulmonology Progress Note ---
Assessment/Plan Problems: (1) Generalized dermatitis (2) HTN (hypertension) (3) Diabetes mellitus (4) Chronic obstructive lung disease Assessment/Plan symptomatic treatment improving unable to find a dial mounter dc with local treatment with ketokonazole f/u labs Subjective ROS Limited/Unobtainable: No Constitutional: Reports: no symptoms Respiratory: Reports: no symptoms Cardiovascular: Reports: no symptoms Gastrointestinal/Abdominal: Reports: no symptoms Allergies: Coded Allergies: AZITHROMYCIN (Unverified Allergy, Severe, 05/13/13) Uncoded Allergies: unknown antibiotic (Allergy, Mild, 04/12/15) pt unsure of name of antibiotic, but states she has an allergy to "something" Objective Last 24 Hour Vital Signs Date Time Temp Pulse Resp B/P Pulse Ox O2 Delivery O2 Flow Rate FiO2 02/18/17 08:05 84 149/64 02/18/17 08:04 84 149/64 02/18/17 08:03 80 16 Nasal Cannula 2.0 28 02/18/17 08:03 Nasal Cannula 2.0 28 02/18/17 08:03 96 Nasal Cannula 2.0 28 02/18/17 08:00 98.2 84 20 149/64 94 Room Air 02/18/17 04:00 98.1 81 20 112/62 95 Nasal Cannula 02/18/17 00:00 98.2 81 20 107/64 100 Nasal Cannula 2.0 02/17/17 21:32 96 113/66 02/17/17 20:00 98.2 96 20 113/66 95 Nasal Cannula 2.0 02/17/17 19:30 88 18 Nasal Cannula 2.0 02/17/17 19:30 98 Nasal Cannula 2.0 02/17/17 19:30 Nasal Cannula 2.0 28 02/17/17 15:54 97.9 02/17/17 15:42 97.9 90 20 126/75 98 Nasal Cannula 2.0 Intake and Output 02/17/17 02/18/17 19:00 07:00 Intake Total 520 ml Output Total 450 ml 350 ml Balance 70 ml -350 ml Intake Oral 520 ml Output Urine Total 450 ml 350 ml # Bowel Movements 1 General Appearance: WD/WN HEENT: normocephalic Respiratory/Chest: chest wall non-tender, lungs clear Breasts: no masses Cardiovascular: normal peripheral pulses Genitourinary: normal external genitalia Extremities: no cyanosis Skin: no rash Laboratory Tests 02/18/17 07:05: White Blood Count 8.3, Red Blood Count 4.07L, Hemoglobin 10.7L, Hematocrit 34.0L , Mean Corpuscular Volume 84, Mean Corpuscular Hemoglobin 26.4L, Mean Corpuscular Hemoglobin Concent 31.5L, Red Cell Distribution Width 15.4H, Platelet Count 232, Mean Platelet Volume 8.0, Neutrophils (%) (Auto) 66.0, Lymphocytes (%) (Auto) 10.0L, Monocytes (%) (Auto) 14.9H, Eosinophils (%) (Auto ) 6.8H, Basophils (%) (Auto) 2.4H, Sodium Level 138, Potassium Level 3.8, Chloride Level 100, Carbon Dioxide Level 28, Anion Gap 10, Blood Urea Nitrogen 11, Creatinine 0.8, Estimat Glomerular Filtration Rate , Glucose Level 96, Calcium Level 8.7 Current Medications Medications (Trade) Dose Ordered Sig/Atul Route PRN Reason Start Time Stop Time Status Last Admin Dose Admin Al Hydroxide/Mg Hydroxide (Mylanta) 30 ml Q6H PRN ORAL Dyspepsia 02/14/17 19:45 03/16/17 19:44 Amlodipine Besylate (Norvasc) 2.5 mg DAILY ORAL 02/13/17 09:00 03/15/17 08:59 02/18/17 08:04 Carvedilol (Coreg) 25 mg Q12HR ORAL 02/12/17 21:00 03/14/17 20:59 02/18/17 08:05 Dextrose (Dextrose 50%) STAT PRN IV Hypoglycemia 02/12/17 13:45 03/14/17 13:44 Diphenhydramine HCl (Benadryl Cream) 1 applic THREE TIMES A DAY PRN TOPIC Itching 02/14/17 13:45 03/16/17 13:44 02/18/17 08:15 Diphenhydramine HCl (Benadryl) 50 mg Q6H PRN ORAL Itching 02/16/17 22:00 03/18/17 21:59 02/18/17 08:05 Fluconazole (Diflucan) 100 mg QHS ORAL 02/14/17 21:00 02/21/17 20:59 02/17/17 21:32 Heparin Sodium (Porcine) (Heparin 5000 units/ml) 5,000 units EVERY 12 HOURS SUBQ 02/12/17 21:00 03/14/17 20:59 02/18/17 08:10 Insulin Aspart (NovoLOG) BEFORE MEALS AND HS SUBQ 02/13/17 16:30 03/15/17 16:29 02/14/17 11:54 Ketoconazole (Nizoral 2% Cream) 1 applic TID TOPIC 02/15/17 20:00 03/17/17 19:59 02/18/17 08:15 Lorazepam (Ativan) 0.5 mg Q4H PRN ORAL For Anxiety 02/16/17 22:00 02/23/17 21:59 02/18/17 08:04 Montelukast Sodium (Singulair) 10 mg QPM ORAL 02/12/17 16:30 03/14/17 16:29 02/17/17 17:27 Morphine Sulfate (Morphine Sulfate) 2 mg Q4H PRN SUBQ severe pain 02-1102/17/17 01:45 02/24/17 01:44 02/18/17 08:07 Nitroglycerin (Ntg) 0.4 mg Q5M X 3 DOSES PRN SL Prn Chest Pain 02/12/17 13:45 03/14/17 13:44 Ondansetron HCl (Zofran) 4 mg Q6H PRN IVP Nausea & Vomiting 02/12/17 13:45 03/14/17 13:44 02/14/17 17:48 Pantoprazole (Protonix) 40 mg DAILY ORAL 02/15/17 09:00 03/17/17 08:59 02/18/17 08:04 Promethazine HCl/ Codeine (Phenergan with Codeine) 5 ml Q6H PRN ORAL cough 02/12/17 13:45 03/14/17 13:44 02/17/17 08:13 Temazepam (Restoril) 15 mg HSPRN PRN ORAL Insomnia 02/12/17 13:45 02/19/17 13:44 JORDON ALBRECHT Feb 18, 2017 14:16
[2017-02-18 16:00] VITALS: BP 135/66
[2017-02-18] MEDS: Montelukast 10mg tablet ORAL SCH (17:20)
--- NOTE | 2017-02-18 21:13 | General Progress Note ---
Assessment/Plan Assessment/Plan cellulitis intertigo dermatitis ho asthma no cad htn obesity diabetes abx per ID there is no dermatoglist at this hospital patient will need to see derm as out patient wound care avoid steroid pulmonary hygiene bp stable monitor accuchecks PT oob dvt and ulcer prophylaxis dw Dr Barrientos , dc plans noted with Subjective Allergies: Coded Allergies: AZITHROMYCIN (Unverified Allergy, Severe, 05/13/13) Uncoded Allergies: unknown antibiotic (Allergy, Mild, 04/12/15) pt unsure of name of antibiotic, but states she has an allergy to "something" Subjective above noted overall doing better Objective Last 24 Hour Vital Signs Date Time Temp Pulse Resp B/P Pulse Ox O2 Delivery O2 Flow Rate FiO2 02/18/17 16:00 97.0 78 18 135/66 99 Room Air 02/18/17 08:05 84 149/64 02/18/17 08:04 84 149/64 02/18/17 08:03 80 16 Nasal Cannula 2.0 28 02/18/17 08:03 Nasal Cannula 2.0 28 02/18/17 08:03 96 Nasal Cannula 2.0 28 02/18/17 08:00 98.2 84 20 149/64 94 Room Air 02/18/17 04:00 98.1 81 20 112/62 95 Nasal Cannula 02/18/17 00:00 98.2 81 20 107/64 100 Nasal Cannula 2.0 02/17/17 21:32 96 113/66 Intake and Output 02/17/17 02/18/17 19:00 07:00 Intake Total 520 ml Output Total 450 ml 350 ml Balance 70 ml -350 ml Intake Oral 520 ml Output Urine Total 450 ml 350 ml # Bowel Movements 1 Laboratory Tests 02/18/17 07:05: White Blood Count 8.3, Red Blood Count 4.07L, Hemoglobin 10.7L, Hematocrit 34.0L , Mean Corpuscular Volume 84, Mean Corpuscular Hemoglobin 26.4L, Mean Corpuscular Hemoglobin Concent 31.5L, Red Cell Distribution Width 15.4H, Platelet Count 232, Mean Platelet Volume 8.0, Neutrophils (%) (Auto) 66.0, Lymphocytes (%) (Auto) 10.0L, Monocytes (%) (Auto) 14.9H, Eosinophils (%) (Auto ) 6.8H, Basophils (%) (Auto) 2.4H, Sodium Level 138, Potassium Level 3.8, Chloride Level 100, Carbon Dioxide Level 28, Anion Gap 10, Blood Urea Nitrogen 11, Creatinine 0.8, Estimat Glomerular Filtration Rate , Glucose Level 96, Calcium Level 8.7 Height (Feet): 5 Height (Inches): 4.00 Weight (Pounds): 200 General Appearance: WD/WN, no apparent distress Cardiovascular: normal rate Respiratory/Chest: lungs clear Abdomen: soft Objective skin po intertrigo rash on neck chest backpos cellulitis much improved SAPPHIRE JACKSON Feb 18, 2017 21:13
[2017-02-19] MEDS ORDERED: FLUCONAZOLE100 MG ORAL (14:16)
--- NOTE | 2017-02-19 14:23 | Discharge Summary ---
Discharge Summary Hospital Course Date of Admission Feb 12, 2017 at 12:22 Date of Discharge Feb 18, 2017 at 18:22 Admitting Diagnosis cellulitis HPI Kianna Palomo is a 86 year old female who was admitted on Feb 12, 2017 at 12:22 for Cellulitis Hospital Course dc summary #[id number] Discharge Medications New Medications: Fluconazole (Fluconazole) 100 Mg Tablet 100 MG ORAL DAILY, #7 TAB 0 Refills Ketoconazole (Ketoconazole) 15 Gm Cream..g. 1 APPLIC TOPIC TID for 10 Days, GM Continued Medications: Amlodipine Besylate (Norvasc) 2.5 Mg Tab 2.5 MG ORAL DAILY, #10 TAB Carvedilol* (Carvedilol*) 25 Mg Tablet 25 MG ORAL BID, TAB Montelukast Sodium* (Montelukast Sodium*) 10 Mg Tablet 10 MG ORAL DAILY, TAB Pantoprazole* (Pantoprazole*) 40 Mg Tablet.dr 40 MG ORAL DAILY, TAB Polyethylene Glycol 3350* (Miralax*) 17 Gm Powd.pack 17 GM PO DAILY PRN Discharge Condition Upon Discharge: stable Discharge Disposition Patient was discharged to Home () Discharge Diagnoses: Pietro (Vancein)Marixa NP Feb 19, 2017 14:23
--- NOTE | 2017-02-20 10:16 | Discharge Summary 2 SIG ---
DATE OF ADMISSION: 02/12/2017 DATE OF DISCHARGE: 02/18/2017 REASON FOR ADMISSION: 86-year-old female with a history of COPD/asthma, hypertension, and diabetes, presented to emergency department with generalized rash and intractable itching mostly on her back and extremities. No reported episodes of fever. No chills. The patient initially was afebrile, had no leukocytosis. The patient denied pain with rash, but reports severe itching. She was not sure when she got the last tetanus shot. The patient was afebrile, mild tachycardia -108, mild tachypnea -24, blood pressure on the low side -96/64, pulse oximetry - 97% on the room air. White blood count was within normal limit -6.0. Lactic acid -2.9. BUN -12 and creatinine -1.0. ProBNP- 353. Troponin negative. EKG showed normal sinus rhythm. No acute changes. Chest x-ray revealed no acute cardiopulmonary disease. The patient was admitted for further management. ADMITTING DIAGNOSES: 1. Sepsis. 2. Cellulitis. 3. Shayna intertrigo. 4. Generalized dermatitis 5. Diabetes. HOSPITAL COURSE: The patient was admitted. The patient was started on antifungal topically and antifungal orally. Antipruritic provided as needed, ID consult was requested. Recommended to avoid steroids. Exam was not consistent with scabies infestation. Unable to get Dermatology evaluation, there was no Dermatology on staff in the hospital currently. Wound care nurse seen the patient and recommended wound care. Skin care was provided as per wound care nurse recommendation. Supplemental oxygen and pulmonary toilet provided as needed. Chest x-ray revealed no acute cardiopulmonary disease. Antitussive provided as needed. Singulair was continued. No evidence of acute chronic obstructive pulmonary disease exacerbation. Blood pressure was managed with calcium-channel daisy and beta-daisy. Blood sugar was managed with sliding scale of insulin. Pain management was addressed. The patient was working with physical therapists. DVT and GI prophylaxis were provided. Bowel regimen was instituted. Seizure precautions were maintained. No evidence of seizure activity while in the hospital. The patient was stable for discharge home and followup as outpatient with the Dermatology next week. FINAL DIAGNOSIS: 1. Sepsis 2. Cellulitis 3. Shayna intertrigo 4. Generalized dermatitis 5. Diabetes 6. HTN 7. COPD 8. Morbid obesity DISCHARGE MEDICATIONS: See medication reconciliation list. DISCHARGE INSTRUCTIONS: The patient was discharged home. Followup with the [facility] [facility] next week. Derek Barrientos M.D. Marixa RosaElizabethtown Community HospitalHarley mckinney DR: JOVANI JOB#: [id number] CC: DAYANA
== END 2017-02-18 18:22 | disposition home or self-care (01) | DRG 720 ==
LOC: EMR 11:19 → 4E 12:22 → EDBEDREQ 14:48
DX: A41.9 Sepsis, unspecified organism (principal); J44.9 Chronic obstructive pulmonary disease, unspecified; E11.9 Type 2 diabetes mellitus without complications; L03.818 Cellulitis of other sites; E66.01 Morbid (severe) obesity due to excess calories; B37.2 Candidiasis of skin and nail; I10 Essential (primary) hypertension; L30.4 Erythema intertrigo; Z88.1 Allergy status to other antibiotic agents; E78.5 Hyperlipidemia, unspecified; Z87.891 Personal history of nicotine dependence; L30.9 Dermatitis, unspecified; K21.9 Gastro-esophageal reflux disease without esophagitis; M19.90 Unspecified osteoarthritis, unspecified site
CPT/HCPCS: 36415; 71010; 80048; 80053; 81001; 82550; 82553; 82962; 83605; 83690; 83735; 83880; 84100; 84484; 85025; 85610; 85651; 85730; 86140; 87040; 87070; 87181; 87205; 90471; 90715; 93005; 94640; 94664; 94760; J1815; J2405; J7620